=== PATIENT | male | born 1945 | race Caucasian/White ===

== ENCOUNTER → 2023-11-16 12:23 | Outpatient (REF) | payer OTHER, SELFPAY | LOC: RCS 12:23 | PROVIDERS: ATTENDING PHYSICIAN Family Medicine | DX: R01.1 Cardiac murmur, unspecified (principal) | CPT/HCPCS: 93306 ==

== ENCOUNTER 2024-03-14 10:35 | Emergency (ER) | payer OTHER, SELFPAY ==
[2024-03-14 10:36] VITALS: BP 173/93
--- NOTE | 2024-03-14 12:08 | ED.GENMED ---
History of Present Illness
General
Chief Complaint: Breathing Problem
Time Seen by Provider: 03/14/24 11:27
History of Present Illness
History of Present Illness:
79-year-old male without significant past medical history presenting to the emergency department for throat pain. Patient reports for the past few days he has been having generalized burning discomfort diffusely throughout his neck, worse with any
type of deep inspiration. He reports that no position is comfortable for him. Reports pain to the cervical region as well without inciting injury or trauma. He tried Tylenol without relief of symptoms. He denies associated fever. He reports
that he was having some pain in his chest which is since resolved. Denies difficulty breathing. He denies ever having similar symptoms to this in the past. Denies issues swallowing or tolerating his secretions. Denies additional acute medical
complaints.
Past History
Past History
ED Past Medical History: None
Social History
Tobacco: Non-smoker
Alcohol: Occasional
Family History
Family History: Negative Diabetes or CAD
Phy Exam
Physical Exam
Physical Exam:
General: Well-appearing, no clinical signs of dehydration, nontoxic and in no acute distress
HEENT: protecting airway
Neck: appears supple. Tender lymphadenopathy to the cervical region without significant swelling. No trismus. No oropharyngeal swelling, uvula midline. Normal phonation of voice. No swelling to the floor of the mouth. Handling secretions
without difficulty. No reproducible tenderness to the cervical spine with range of motion intact. No meningismus.
CV: Normal heart rate, regular rhythm, no evidence of cyanosis
Resp: No accessory muscle use, no increased work of breathing, lungs clear to auscultation bilaterally
Abd: Soft and non-distended, no tenderness to palpation, normal bowel sounds
Extremities: No deformities, no swelling, no erythema
Neuro: alert, no focal neurologic deficit
: deferred
Rectal: deferred
Psych: Normal affect
Skin: Intact
Scores
Heart Failure Risk
Heart Failure Risk Score: Not Applicable
Course
Orders/Labs/Results
Orders:
Orders
03/14/24 10:40
EKG [Electrocardiogram (*1)] Urgent
Reason for Study: Chest Pain
EKG- Treatment ONCE
03/14/24 12:01
CT Neck With Iv Contrast Urgent
Comment:
Reason For Exam: b/l frontal neck pain, burning
Rapid Strep Group A Urgent
SHAR Source: Throat/Pharynx
Specimen Description:
Date Specimen was Collected: 03/14/24
Time Specimen was Collected: 13:05
Ketorolac [Toradol] 15 mg IV NOW STA
03/14/24 12:56
Complete Blood Count/With Diff Urgent
Comprehensive Metabolic Panel Urgent
Troponin I Urgent
Abnormal Lab Results
03/14/24
12:56
WBC 11.2 H 10^3/uL
(4.8-10.8)
RBC 4.49 L 10^6/uL
(4.70-6.10)
MCH 31.6 H pg
(27.0-31.0)
MPV 10.5 H fL
(7.4-10.4)
Abs Immat Gran (auto) 0.1 H 10^3/uL
(0-0.05)
Absolute Neuts (auto) 8.9 H 10^3/uL
(1.4-6.5)
Absolute Lymphs (auto) 0.7 L 10^3/uL
(1.2-3.4)
Absolute Monos (auto) 1.5 H 10^3/uL
(0.1-0.6)
Neutrophils % 79.1 H %
(42.2-75.2)
Lymphocytes % 6.4 L %
(20.5-51.1)
Monocytes % 13.5 H %
(1.7-9.3)
Glucose 123 H mg/dl
(70-99)
03/14/24 12:56
03/14/24 12:56
Vital Signs
Initial and Last Documented VS:
Initial Vital Signs
Temp Pulse Resp BP Pulse Ox
99.1 F 112 20 173/93 98
03/14/24 10:36 03/14/24 10:36 03/14/24 10:36 03/14/24 10:36 03/14/24 10:36
Last Documented Vital Signs
Temp Pulse Resp BP Pulse Ox
99.1 F 89 26 108/67 94
03/14/24 10:36 03/14/24 15:15 03/14/24 15:15 03/14/24 15:00 03/14/24 15:15
MDM/Problems Addressed
MDM/Problems Addressed:
79-year-old male without significant past medical history presenting for generalized neck pain. Vital signs significant for hypertension.
On exam, patient resting comfortably, no compromise to his airway. Patient with vague symptom complaint, notes pain is worse with any type of deep inspiration, also reports that he did have some chest pain which has resolved. EKG was obtained on
patient's arrival, without acute ischemic abnormality. No concern for ACS at this time. No signs of Ky's or edema to the floor of the mouth. Uvula is midline, no trismus. Patient does have some tender lymphadenopathy, without additional
signs of strep pharyngitis. Will swab screening. Patient also notes some pain to the back of the neck, however not reproducible. No meningismus or concern for meningitis. No report of trauma or concern for traumatic injury. Possible
musculoskeletal component. Patient describes the pain as a burning. Possible gastric component. No tenderness to the abdomen. Given the vague nature, will plan for advanced imaging and screening laboratory analysis. Will treat with Toradol and
GI cocktail and reassess for improvement
16:20 -patient's labs are unremarkable. Patient has been hemodynamic stable in the emergency department. CT without any severe underlying infection. However, there is some abnormalities, mention of thyroid nodules, prominent lymph nodes, soft
tissue mass to the left third rib concerning for underlying metastatic process. Recommending close interval outpatient follow-up. Patient reports that he already has follow-up with ear nose and throat doctor tomorrow given his symptoms. Results
were communicated to patient. Explained importance of follow-up, again explained that he has follow-up tomorrow. Otherwise feel stable for discharge. Return precautions discussed and patient verbalized understanding
*Critical Care Note
Total Time (30-74mins, 75-104mins- exclusive of procedures): Not Applicable
ED Attending Note
-
Portions of this chart may have been created with voice recognition software.� Occasional wrong word or��sound alike� substitutions may have occurred due to the inherent limitations of voice recognition software.
Discharge Plan
Departure
Patient Disposition: Home (Routine Discharge)
Date of Disposition: 03/14/24
Time of Disposition: 16:21
Patient with high blood pressure during this ER visit?: No
Condition: Good
Discharge Problem:
Throat pain in adult, Thyroid nodule
Instructions: Thyroid nodules
Prescriptions:
No Action
No Current Medications
0
Referrals:
Babar,Kevin Shipley MD [Active] - (thyroid nodules)
UNKNOWN - PT DOES,NOT KNOW [Unknown Provider] -
Activity Restrictions/Additional Instructions:
You were seen in the emergency department for throat pain
You were found to have an abnormal CT scan which showed thyroid nodules and a soft tissue mass on your left third rib.
Please follow-up closely with your primary care physician as well as the ear nose and throat doctor.
Return to the emergency department for any worsening of your symptoms, difficulty tolerating your secretions or swallowing, or any development of chest pain, difficulty breathing, abdominal pain with persistent vomiting and inability to tolerate
food or liquid by mouth (concern for dehydration), weakness, headache or confusion, fever greater than 100.4, or any additional symptoms that are concerning to you.
Thank you for choosing [facility].
Interventions
Interventions:
*Risk Screen - Suicide Last Done: 03/14/24 10:36
*General Assessment Last Done: 03/14/24 10:36
*Neglect/Abuse Screening Last Done: 03/14/24 10:36
ED- Fall Risk Assessment Last Done: 03/14/24 16:27
*ED COVID-19 Vaccine History Last Done: 03/14/24 10:36
*Nursing Disposition Last Done: 03/14/24 16:27
ED- Cardiac Assessment Last Done: 03/14/24 13:57
ED- Pulmonary Assessment Last Done: 03/14/24 13:57
Discharge Date and Time
Discharge Date/Time: 03/14/24 16:28
Print Language: SLOVAK
[2024-03-14] MEDS: TORADOL 15 MG IV (12:54)
[2024-03-14 13:03] LABS: % Basophils 0.3 % (0-2); % Eosinophils 0.3 % (0-6); % Immature Granulocytes 0.4 % (0-0.5); % Lymphocytes 6.4 % (20.5-51.1); % Monocytes 13.5 % (1.7-9.3); % Neutrophils 79.1 % (42.2-75.2); Absolute Immature Granulocytes 0.1 10^3/uL (0-0.05); Absolute Lymphocytes 0.7 10^3/uL (1.2-3.4); Absolute Monocytes 1.5 10^3/uL (0.1-0.6); Absolute Neutrophils 8.9 10^3/uL (1.4-6.5); Hematocrit 40.7 % (39.0-52.0); Hemoglobin 14.2 g/dL (13.0-18.0); Mean Corp Hgb Conc. 34.9 g/dL (33.0-37.0); Mean Corpuscular Hgb 31.6 pg (27.0-31.0); Mean Corpuscular Volume 90.6 fL (80.0-94.0); Mean Platelet Volume 10.5 fL (7.4-10.4); Nucleated Red Blood Cells % 0 % (-); Platelet Count 219 10^3/uL (130-400); Red Blood Cell Count 4.49 10^6/uL (4.70-6.10); Red Cell Dist. Width 12.7 % (11.5-14.5); White Blood Cell Count 11.2 10^3/uL (4.8-10.8)
[2024-03-14 13:18] LABS: ALT (SGPT) 18 U/L (0-50); AST (SGOT) 27 U/L (17-59); Albumin 4.1 g/dl (3.5-5.0); Alkaline Phosphatase 70 U/L (38-126); Blood Urea Nitrogen 15 mg/dl (9-20); Calcium 9.5 mg/dl (8.4-10.2); Carbon Dioxide 26 mmol/L (22-30); Chloride 103 mmol/L (98-107); Glucose 123 mg/dl (70-99); Potassium 4.4 mmol/L (3.5-5.1); Sodium 135 mmol/L (135-145); Total Protein 6.7 g/dl (6.3-8.2); eGFR > 60.00
[2024-03-14 13:30] LABS: Troponin I < 0.012 ng/ml
[2024-03-14 14:00] VITALS: BP 115/65
[2024-03-14 14:04] VITALS: BP 115/65
[2024-03-14 15:00] VITALS: BP 108/67
== END 2024-03-14 16:28 | disposition home or self-care (01) ==
LOC: EMR 10:35
PROVIDERS: EMERGENCY PHYSICIAN Student in an Organized Health Care Education/Training Program; FAMILY PHYSICIAN Family Medicine
DX: R07.0 Pain in throat (principal); M54.2 Cervicalgia; E04.2 Nontoxic multinodular goiter; R59.1 Generalized enlarged lymph nodes; R07.9 Chest pain, unspecified; M79.89 Other specified soft tissue disorders; R22.2 Localized swelling, mass and lump, trunk; Z88.0 Allergy status to penicillin
CPT/HCPCS: 99285; 96374; 70491; 80053; 84484; 85025; 87070; 87880; 93005; Q9967

== ENCOUNTER 2024-03-23 16:57 | Inpatient (IN) | payer OTHER, SELFPAY ==
[2024-03-23 11:40] VITALS: BP 121/83
[2024-03-23 11:58] LABS: % Basophils 0.4 % (0-2); % Eosinophils 1.2 % (0-6); % Immature Granulocytes 0.7 % (0-0.5); % Lymphocytes 11.8 % (20.5-51.1); % Neutrophils 73.9 % (42.2-75.2); Absolute Basophils 0.1 10^3/uL (0-0.2); Absolute Eosinophils 0.1 10^3/uL (0-0.7); Absolute Immature Granulocytes 0.1 10^3/uL (0-0.05); Absolute Lymphocytes 1.4 10^3/uL (1.2-3.4); Absolute Monocytes 1.4 10^3/uL (0.1-0.6); Absolute Neutrophils 8.8 10^3/uL (1.4-6.5); Hematocrit 38.2 % (39.0-52.0); Hemoglobin 13.3 g/dL (13.0-18.0); Mean Corp Hgb Conc. 34.8 g/dL (33.0-37.0); Mean Corpuscular Hgb 31.4 pg (27.0-31.0); Mean Corpuscular Volume 90.1 fL (80.0-94.0); Nucleated Red Blood Cells % 0 % (-); Platelet Count 310 10^3/uL (130-400); Red Blood Cell Count 4.24 10^6/uL (4.70-6.10); Red Cell Dist. Width 12.7 % (11.5-14.5); White Blood Cell Count 11.9 10^3/uL (4.8-10.8)
[2024-03-23 12:08] LABS: INR 1.14; PT 14.7 Sec (11.4-14.6)
[2024-03-23 12:20] LABS: ALT (SGPT) 34 U/L (0-50); AST (SGOT) 39 U/L (17-59); Albumin 3.8 g/dl (3.5-5.0); Alkaline Phosphatase 68 U/L (38-126); Blood Urea Nitrogen 16 mg/dl (9-20); Calcium 9.3 mg/dl (8.4-10.2); Carbon Dioxide 23 mmol/L (22-30); Chloride 104 mmol/L (98-107); Glucose 115 mg/dl (70-99); Potassium 4.8 mmol/L (3.5-5.1); Sodium 134 mmol/L (135-145); Total Bilirubin 0.9 mg/dl (0.2-1.3); Total Protein 6.3 g/dl (6.3-8.2); eGFR > 60.00
[2024-03-23 12:22] LABS: Troponin I < 0.012 ng/ml
[2024-03-23 13:00] VITALS: BP 107/81
--- NOTE | 2024-03-23 13:14 | ED.GENMED ---
History of Present Illness
General
Chief Complaint: Cardiac Symptoms
Time Seen by Provider: 03/23/24 12:35
History of Present Illness
History of Present Illness:
Patient is a 79-year-old man who is otherwise healthy presenting to the emergency department with neck pain arm pain and chest pain. Patient states that he came in here last week for the same and had CAT scans and x-rays. He states that he has
been having neck pain for quite some time. He can localize it to his base of the neck right above the clavicle. He also has shooting pain down his left arm. No back of the neck pain. He is also occasionally been having chest pain. It is
sometimes pleuritic. He does have some shortness of breath secondary to it. No fevers or chills. No leg swelling. No recent travel. No hemoptysis. 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
many years ago. He does state that he follows with a PCP and does see them regularly. Patient states that he is back here as the pain has not gotten any better. Patient states that he followed up with ENT though did not have any relief. Per
chart review it appears that patient a CT of his neck completed which does show thyroid nodules and a prominent lymph node directly at the point of patient's pain. X-ray does show concerning metastatic process. Unfortunately patient did not
follow-up for ultrasound but did see ENT.
Past History
Past History
ED Past Medical History: None
Social History
Tobacco: Non-smoker
Alcohol: Occasional
Family History
Family History: Negative Diabetes or CAD
Phy Exam
Physical Exam
Physical Exam:
GENERAL: in no acute distress
HEENT: normocephalic, extraocular movements intact, moist oral mucosa, tender lymph node at the left base of the anterior cervical chain
NECK: normal inspection, no C-spine tenderness
RESPIRATORY: no respiratory distress, clear to auscultation bilaterally
CARDIOVASCULAR: regular rate and rhythm
ABDOMEN/: soft, non-distended, non-tender to palpation, no rebound or guarding
EXTREMITIES: non-tender, no edema/swelling
NEUROLOGIC: awake and alert, moves all extremities
SKIN: warm
Course
Orders/Labs/Results
Orders:
Orders
03/23/24 11:33
ECG [Electrocardiogram (*1)] Urgent
Reason for Study: Other
Other Reason for Exam: Jaw Pain
03/23/24 11:34
EKG- Treatment ONCE
03/23/24 11:41
CR Chest - 2 Views Urgent
Comment:
Reason For Exam: chest pain
03/23/24 11:45
Complete Blood Count/With Diff Urgent
Comprehensive Metabolic Panel Urgent
Prothrombin Time Urgent
Troponin I Urgent
03/23/24 13:08
CT Chest Pe Study Urgent
Comment:
Reason For Exam: pleuritic cp
03/23/24 13:29
COVID-19 Antigen Urgent
Source: Nasal Swab
Abnormal Lab Results
03/23/24
11:45
WBC 11.9 H 10^3/uL
(4.8-10.8)
RBC 4.24 L 10^6/uL
(4.70-6.10)
Hct 38.2 L %
(39.0-52.0)
MCH 31.4 H pg
(27.0-31.0)
Abs Immat Gran (auto) 0.1 H 10^3/uL
(0-0.05)
Absolute Neuts (auto) 8.8 H 10^3/uL
(1.4-6.5)
Absolute Monos (auto) 1.4 H 10^3/uL
(0.1-0.6)
Immature Gran % 0.7 H %
(0-0.5)
Lymphocytes % 11.8 L %
(20.5-51.1)
Monocytes % 12.0 H %
(1.7-9.3)
PT 14.7 H Sec
(11.4-14.6)
Sodium 134 L mmol/L
(135-145)
Glucose 115 H mg/dl
(70-99)
03/23/24 11:45
03/23/24 11:45
Vital Signs
Initial and Last Documented VS:
Initial Vital Signs
Temp Pulse Resp BP Pulse Ox
97.9 F 95 18 121/83 95
03/23/24 11:40 03/23/24 11:40 03/23/24 11:40 03/23/24 11:40 03/23/24 11:40
Last Documented Vital Signs
Temp Pulse Resp BP Pulse Ox
97.9 F 87 30 113/74 94
03/23/24 11:40 03/23/24 15:00 03/23/24 15:00 03/23/24 15:00 03/23/24 15:00
MDM/Problems Addressed
Differential Diagnosis Includes:
Patient is a 79-year-old man with no past medical history presenting to the emergency department with neck pain arm pain and chest pain. Vitals are unremarkable. Exam does show a tender lymph node but otherwise exam is reassuring. The neck pain
could certainly be due to the lymph node. The arm arm pain does sound neuropathic in nature. However could be atypical ACS though less likely. Given that he is having pleuritic chest pain and this metastatic disease could be PE. This is
reassuring that he is not hypoxic or tachycardic. Will check blood work including troponin and EKG and CT PE. Patient is aware of the importance of following up regarding the thyroid nodules and lymph node.
*Critical Care Note
Total Time (30-74mins, 75-104mins- exclusive of procedures): Not Applicable
Update Note
Update Note:
Blood work is unremarkable. CT scan does show moderate-sized pericardial effusion as well as a left adrenal nodule. On ambulation patient did become more short of breath vital signs still remains normal. It could be secondary to the pericardial
effusion. It is reassuring that he is not hypotensive or presenting with tamponade physiology.. I did discuss with oncology who is in agreement for admission given that the lesions do not give a unifying diagnosis. Discussed with hospitalist who
accepted patient for admission
ED Attending Note
-
Portions of this chart may have been created with voice recognition software.� Occasional wrong word or��sound alike� substitutions may have occurred due to the inherent limitations of voice recognition software.
Discharge Plan
Departure
Patient Disposition: Admit
Date of Disposition: 03/23/24
Time of Disposition: 15:28
Admit to doctor: go
Presentation/result/management discussed w/ accepting MD/DO: Hospitalist
Discharge Problem:
Acute pericardial effusion, Thyroid nodule, Lesion of adrenal gland
Prescriptions:
No Action
No Current Medications
0
Referrals:
León Mendosa MD [Family Provider] -
Interventions
Interventions:
*Risk Screen - Suicide Last Done: 03/23/24 13:25
*General Assessment Last Done: 03/23/24 13:25
*Neglect/Abuse Screening Last Done: 03/23/24 13:25
*ED COVID-19 Vaccine History Last Done: 03/23/24 14:00
ED- Pulmonary Assessment Last Done: 03/23/24 13:26
ED- Cardiac Assessment Last Done: 03/23/24 13:26
Discharge Date and Time
Print Language: FRISIAN
[2024-03-23 13:18] VITALS: BMI 31.6
[2024-03-23 14:00] VITALS: BP 102/70
[2024-03-23 14:00] LABS: COVID-19 Antigen Negative (Negative)
[2024-03-23 15:00] VITALS: BP 113/74
--- NOTE | 2024-03-23 16:45 | HPS.HSE ---
Family Physician
-
Family Physician: León Mendosa
Chief Complaint
-
neck pain
History of Present Illness
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 Pain originally started like back stiffness all across his back and neck 1 week
ago which later resolved. He then developed neck pain and lower chest pain and left arm pain. He came to the emergency room and had a CT scan of the neck which showed 2.5 cm left neck lymph node and left third rib lesion. He was discharged home
and recommend to follow-up with ENT who did not note any abnormality on examination.
He has been having shortness of breath that is worse with breathing and worse with exertion or lying down. Breathing also makes the neck pain worse. Chest pain is somewhat better at this time. He denies any dizziness or palpitations. He denies
any cough or fevers or chills. He denies any nausea vomiting or diarrhea. He denies any recent upper respiratory illness. Denies any lower extremity edema or increased weight. He denies difficulty swallowing although eating softer foods.
He denies any blurry vision, headache, numbness or tingling, focal weakness or vertigo.
He was told that he had tumors in his left carotid artery after having pain behind his ear 20 years ago. He was told that surgery was not recommended because he could become paralyzed.
His brother at age of 32 from colon cancer. His mother had breast cancer. No other family history of malignancy.
He denies smoking or alcohol use.
Medical History
Past Medical History
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
Past Surgical History: Reports Tonsilectomy
Social History
Tobacco: Non-smoker
Alcohol: None
Drug: None
Family History
Family History: Other (His brother at age of 32 from colon cancer. His mother had breast cancer.)
Allergies / Home Medications
Allergies reflects when Allergies were last updated in [employer].
Home Medications with original date entered in [employer]
Allergy/Medication List:
Allergies
Allergy/AdvReac Type Severity Reaction Status Date / Time
Penicillins Allergy Hives Verified 03/14/24 10:36
Home Medications
acetaminophen 325 mg tablet (Tylenol) 650 mg PO BIDPRN PRN mild pain 03/23/24
ascorbic acid (vitamin C) 500 mg tablet (Vitamin C) 500 mg PO DAILY Supplement 03/23/24
coQ10 (ubiquinol) 100 mg capsule 100 mg PO DAILY Supplement 03/23/24
cyanocobalamin (vitamin B-12) 2,500 mcg tablet 2,500 mcg PO DAILY Supplement 03/23/24
garlic 300 mg capsule 300 mg PO DAILY Supplement 03/23/24
glucosam-sod chondro-vit C-angela tablet 2 tab PO DAILY 03/23/24
magnesium oxide 250 mg PO DAILY Supplement 03/23/24
therapeutic multivitamin 1 tab PO DAILY Supplement 03/23/24
zinc 15 mg tablet 30 mg PO DAILY Supplement 03/23/24
Review of Systems
-
History Source: Patient
A 12 point ROS was completed and negative except as noted: Yes
Constitutional: Reports No Symptoms
EENT: Reports No Symptoms
Respiratory: Reports See HPI
Cardiac: Reports See HPI
Abdomen/GI: Reports See HPI
: Reports No Symptoms
Musculoskeletal: Reports No Symptoms
Skin: Reports No Symptoms
Neurological: Reports See HPI
Endocrine: Reports No Symptoms
Hematologic/Lymphatic: Reports No Symptoms
Psych: Reports No Symptoms
Physical Exam
Vital Signs
Vital Signs
Temp Pulse Resp BP Pulse Ox
97.9 F 87 30 113/74 94
03/23/24 11:40 03/23/24 15:00 03/23/24 15:00 03/23/24 15:00 03/23/24 15:00
Physical Exam
General: Well Developed, Well Nourished and No Apparent Distress
HEENT: NormoCephalic, Moist mucous membranes, Atraumatic and Other (anterior left neck mass )
Respiratory: Decreased Breath Sounds (bilterally )
Cardiac: S1/S2 and Regular Rhythm; No Murmur or Rub
GI: Soft, Non Tender, Non Distended and Normal Bowel Sounds; No Organomegaly
Rectal: Deferred by Provider
Musculoskeletal: No Clubbing, No Cyanosis and No Edema
Skin: No Rash
Neuro: Nonfocal/grossly intact
Laboratory Results
-
03/23/24 11:45
03/23/24 11:45
Laboratory Results
PT 14.7 Sec (11.4-14.6) H 03/23/24 11:45
INR 1.14 03/23/24 11:45
Total Bilirubin 0.9 mg/dl (0.2-1.3) 03/23/24 11:45
AST 39 U/L (17-59) 03/23/24 11:45
ALT 34 U/L (0-50) 03/23/24 11:45
Alkaline Phosphatase 68 U/L (38-126) 03/23/24 11:45
Troponin I < 0.012 ng/ml 03/23/24 11:45
Data Reviewed
-
Lab Data: Labs Reviewed by me
Old Records: Reviewed
Impression/Plan
-
IMPRESSION:
PLAN:
# Neck pain secondary to left neck lymph node, clinical picture suspicious for lymphoma/leukemia
-CBC shows slight elevation of absolute immature granulocytes, absolute neutrophils, absolute monocytes
-Oncology consulted
# Lateral left third rib lesion suspicious for malignancy
# Left upper extremity pain
-Check cervical MRI with contrast to rule out cervical radiculopathy from malignancy
-Tylenol, ibuprofen for pain
# Pleuritic chest pain/shortness of breath secondary to moderate-sized pericardial effusion
-possible pericarditis from underlying inflammatory process
-EKG shows normal sinus rhythm, no ischemic changes
-Troponin negative
-Check echo
-Cardiology consulted
# 1.5 cm left adrenal nodule
#Thyroid nodules
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
-Check CTA neck
BPH
Full code
DVT prophylaxis heparin
Regular diet
[2024-03-23 17:00] VITALS: BP 109/58
--- NOTE | 2024-03-23 18:25 | PTCARENOTE ---
pt admitted from ED Awake and alert. Oriented, though noted to be inappropriate with female staff. LCTA B/L on RA. MS. regular heart sounds. round obese abd. +BD x4. cont b&B weak PP no edema
[2024-03-23] MEDS: HEPARIN 5000 UNITS SC (20:37)
[2024-03-23 23:13] VITALS: BP 107/64
[2024-03-24 06:49] LABS: % Basophils 0.5 % (0-2); % Eosinophils 0.3 % (0-6); % Immature Granulocytes 0.6 % (0-0.5); % Lymphocytes 9.6 % (20.5-51.1); % Monocytes 10.5 % (1.7-9.3); % Neutrophils 78.5 % (42.2-75.2); Absolute Basophils 0.1 10^3/uL (0-0.2); Absolute Immature Granulocytes 0.1 10^3/uL (0-0.05); Absolute Monocytes 1.1 10^3/uL (0.1-0.6); Hematocrit 36.3 % (39.0-52.0); Hemoglobin 12.6 g/dL (13.0-18.0); Mean Corp Hgb Conc. 34.7 g/dL (33.0-37.0); Mean Corpuscular Hgb 31.3 pg (27.0-31.0); Mean Corpuscular Volume 90.3 fL (80.0-94.0); Mean Platelet Volume 10.2 fL (7.4-10.4); Nucleated Red Blood Cells % 0 % (-); Platelet Count 295 10^3/uL (130-400); Red Blood Cell Count 4.02 10^6/uL (4.70-6.10); Red Cell Dist. Width 12.7 % (11.5-14.5); White Blood Cell Count 10.2 10^3/uL (4.8-10.8)
[2024-03-24 07:20] LABS: ALT (SGPT) 30 U/L (0-50); AST (SGOT) 28 U/L (17-59); Albumin 3.6 g/dl (3.5-5.0); Alkaline Phosphatase 69 U/L (38-126); Blood Urea Nitrogen 17 mg/dl (9-20); Calcium 9.3 mg/dl (8.4-10.2); Carbon Dioxide 27 mmol/L (22-30); Chloride 101 mmol/L (98-107); Estimated Creatinine Clearance 94 ml/min; Glucose 117 mg/dl (70-99); Potassium 4.8 mmol/L (3.5-5.1); Sodium 134 mmol/L (135-145); Total Bilirubin 1.1 mg/dl (0.2-1.3); eGFR > 60.00
[2024-03-24 07:58] VITALS: BP 121/81
--- NOTE | 2024-03-24 08:18 | CON.CAR ---
Addendum entered and electronically signed by Gigi Phillips MD 03/24/24 11:02:
I saw and examined the patient.
The PERFORMANCE MANAGER's note was reviewed and I agree with the note.
Comment: 79 y/o male with BPH, neck mass (previous details unknown), and moderate mitral regurgitation who is here for evaluation since he woke up about 2 weeks ago with back stiffness with associated jaw, throat, left upper chest, and left arm
pain, which is worse when he lays on his left side and can also be worse with inspiration. He was found to have a moderate pericardial and dilated IVC. Given his symptoms of TAYLOR and moderate sized pericardial effusion, we discussed with
interventionalist and will plan for diagnostic and therapeutic pericardiocentesis.
- NPO after midnight for pericardiocentesis
Original Note:
Consultation
Consultation Request
Date/Time Consultation Requested: 03/23/24 6000
Date/Time Consultation Performed: 03/24/24 0815
Requesting Provider: Dr. Espinosa
Performing Provider: Rossi YU for Dr. Phillips
Reason for Consultation: pericardial effusion, concern for pericarditis
Medical History
-
Chief Complaint: neck pain, arm, back pain, TAYLOR
History of Present Illness:
79 y/o male with BPH, neck mass (previous details unknown), and moderate mitral regurgitation who is here for evaluation since he woke up about 2 weeks ago with back stiffness with associated jaw, throat, left upper chest, and left arm pain, which
is worse when he lays on his left side and can also be worse with inspiration. He came to the ER for this and was seen to have thyroid nodules, prominent lymph nodes, soft tissue mass to the left third rib concerning for underlying metastatic
process with recommendation to follow-up on this as OP. However, discomfort has continued. He does report that yesterday, he had TAYLOR when walking to his mailbox. He is admitted for further evaluation. CT ruled out PE, but he was seen to have a
moderate sized pericardial effusion. He is in no distress. BP stable. Denies dizziness.
Past Medical History
Past Medical History: Valvular Disease (moderate MR) and Other (BPH, hx neck mass (details unclear))
Social History
Tobacco: Non-Smoker
Alcohol: None
Family History
Family History: Reviewed & Not Pertinent
Allergies / Home Medications
Allergy/AdvReac Type Severity Reaction Status Date / Time
Penicillins Allergy Hives Verified 03/14/24 10:36
�Medication �Instructions �Recorded �Confirmed �Type
acetaminophen 325 mg tablet 650 mg PO BIDPRN PRN mild pain 03/23/24 03/23/24 History
(Tylenol)
ascorbic acid (vitamin C) 500 mg 500 mg PO DAILY Supplement 03/23/24 03/23/24 History
tablet (Vitamin C)
coQ10 (ubiquinol) 100 mg capsule 100 mg PO DAILY Supplement 03/23/24 03/23/24 History
cyanocobalamin (vitamin B-12) 2,500 mcg PO DAILY Supplement 03/23/24 03/23/24 History
2,500 mcg tablet
garlic 300 mg capsule 300 mg PO DAILY Supplement 03/23/24 03/23/24 History
glucosam-sod chondro-vit C-angela 2 tab PO DAILY 03/23/24 03/23/24 History
tablet
magnesium oxide 250 mg PO DAILY Supplement 03/23/24 03/23/24 History
therapeutic multivitamin 1 tab PO DAILY Supplement 03/23/24 03/23/24 History
zinc 15 mg tablet 30 mg PO DAILY Supplement 03/23/24 03/23/24 History
Review of Systems
-
History Source: Patient
All other systems: Negative unless noted
Respiratory: Trouble Breathing
Cardiac: Chest Pain
Musculoskeletal: Other (arm, neck, jaw pain)
Physical Exam
Vital Signs
Temp Pulse Resp BP Pulse Ox
97.9 F 97 17 121/81 94
03/24/24 07:58 03/24/24 07:58 03/24/24 07:58 03/24/24 07:58 03/24/24 07:58
Lab Results
03/24/24 06:30
03/24/24 06:30
Troponin I < 0.012 ng/ml 03/23/24 11:45
Physical Exam
General: Well Developed, Well Nourished and No Apparent Distress
HEENT: Normocephalic and Anicteric
Respiratory: Clear and Non Labored Respirations
Cardiac: Regular Rhythm and Murmur (II/ systolic)
Skin: Warm and Dry
Neuro: AO x 3
Psych: Calm
Impression / Plan
-
Throat, chest, jaw, arm pain:
-likely related to underlying process concerning for malignancy as below
-trop is normal, EKG unremarkable to my review
Thyroid, rib lesion, enlarged lymph node:
-heme/onc is consulted
Pericardial effusion:
-moderate by CT scan
-this diagnosis is threat to life
-patient in no distress, but does report he has had some SOB
-check echo
-place patient on telemetry
Moderate MR:
-monitor over time by echo
Data Reviewed
-
EKG: Tracing Personally Visualized and interpreted (NSR 94 BPM)
Radiology: Report Reviewed by me (No pneumothorax or vascular congestion. Cannot exclude tiny bilateral pleural effusions.)
CT Scan: Report Reviewed by me (Moderate size pericardial effusion. No evidence of central pulmonary embolism. Small bilateral pleural effusions with accompanying bilateral lower lobe subsegmental atelectasis, left greater than right. Approximate
1.5 cm likely low-attenuation left adrenal nodule)
Medical Tests (Nuc Med, Echo etc): Report Reviewed by me (Echo 11/16/23: LVEF is 60 to 65% by visual estimation. Mild concentric LVH. Dilated RV with normal systolic function. Mild mitral stenosis. Peak/mean gradients across the mitral valve are 10/4
mmHg. Moderate eccentric posteriorly directed mitral regurgitation. Estimated pulmonary artery pressure of 2)
Labs: Labs Reviewed by me
[2024-03-24] MEDS: THERAGRAN 1 TABLET PO (08:41)
[2024-03-24] MEDS: HEPARIN 5000 UNITS SC (08:42)
[2024-03-24] MEDS: MAGNESIUM OXIDE 250 MG PO (08:42)
[2024-03-24] MEDS: VITAMIN C 500 MG PO (08:42)
--- NOTE | 2024-03-24 10:20 | CON.ONC ---
Impression
Impression
Pleural and pericardial effusions
CT findings concerning for malignancy
Remote carotid lesions
Plan
Plan
Would pursue thoracentesis for cytology
Would pursue IR biopsy of the cervical lymph node
Await cervical MRI
Outpatient PET CT scan pending pathologic results
Cardiology to weigh in on pericardial effusion relative to shortness of breath
Will follow
Patient History
History of Present Illness
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 Pain originally started like back stiffness all across his back and neck
1 week ago which later resolved. He then developed neck pain and lower chest pain and left arm pain. He came to the emergency room and had a CT scan of the neck which showed 2.5 cm left neck lymph node and left third rib lesion. He return to the
emergency room with increased shortness of breath exacerbated by exertion or lying down. He denies any dizziness or palpitations. He denies any cough or fevers or chills. He denies any nausea vomiting or diarrhea. He denies any recent upper
respiratory illness. Denies any lower extremity edema or increased weight. He denies difficulty swallowing although eating softer foods. He denies any blurry vision, headache, numbness or tingling, focal weakness or vertigo.
Past-Medical/Surgical History
Past Medical History
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
Past Surgical History: Reports Tonsilectomy
Social History
Tobacco: Non-smoker
Alcohol: None
Drug: None
Family History
Family History: Other (His brother at age of 32 from colon cancer. His mother had breast cancer.)
Patient Medication
�Medication �Instructions �Recorded �Confirmed �Last Taken �Type
acetaminophen 325 mg tablet 650 mg PO BIDPRN PRN mild pain 03/23/24 03/23/24 03/23/24 History
(Tylenol)
ascorbic acid (vitamin C) 500 mg 500 mg PO DAILY Supplement 03/23/24 03/23/24 03/23/24 History
tablet (Vitamin C)
coQ10 (ubiquinol) 100 mg capsule 100 mg PO DAILY Supplement 03/23/24 03/23/24 03/23/24 History
cyanocobalamin (vitamin B-12) 2,500 mcg PO DAILY Supplement 03/23/24 03/23/24 03/23/24 History
2,500 mcg tablet
garlic 300 mg capsule 300 mg PO DAILY Supplement 03/23/24 03/23/24 03/23/24 History
glucosam-sod chondro-vit C-angela 2 tab PO DAILY Supplement 03/23/24 03/23/24 03/23/24 History
tablet
magnesium oxide 250 mg PO DAILY Supplement 03/23/24 03/23/24 03/23/24 History
therapeutic multivitamin 1 tab PO DAILY Supplement 03/23/24 03/23/24 03/23/24 History
zinc 15 mg tablet 30 mg PO DAILY Supplement 03/23/24 03/23/24 03/23/24 History
Active Medications
Generic Name Dose Route Start Last Admin
Trade Name Freq PRN Reason Stop Dose Admin
Acetaminophen 650 mg 03/23/24 18:00
Acetaminophen 325 Mg Tablet PO 04/20/24 17:59
Q4HPRN PRN
mild pain/MCCARTY/temp> 100.4F
Ascorbic Acid 500 mg 03/24/24 08:00 03/24/24 08:42
Ascorbic Acid 500 Mg Tablet PO 04/21/24 07:59 500 mg
DAILY JW Administration
Cyanocobalamin 2,500 mcg 03/24/24 08:00
Cyanocobalamin 1,000 Mcg Tablet PO 04/21/24 07:59
DAILY JW
Heparin Sodium 5,000 units 03/23/24 20:00 03/24/24 08:42
Heparin 5,000 Units/Ml 1 Ml Vial SC 04/20/24 19:59 5,000 units
Q12 JW Administration
Ibuprofen 400 mg 03/23/24 18:00
Ibuprofen 400 Mg Tablet PO 04/20/24 17:59
Q6HPRN PRN
MODERATE PAIN
Magnesium Oxide 250 mg 03/24/24 08:00 03/24/24 08:42
Magnesium Oxide 500 Mg Tablet PO 04/21/24 07:59 250 mg
DAILY JW Administration
Multivitamins Therapeutic 1 tablet 03/24/24 08:00 03/24/24 08:41
Multivitamin Tablet PO 04/21/24 07:59 1 tablet
DAILY JW Administration
Sodium Chloride 0 flush 03/23/24 19:00
Sodium Chloride 0.9% (Flush) Syringe IV 04/20/24 18:59
PER PROTOCOL JW
Review of Systems
-
12 point review of systems negative other than those reviewed in the HPI
Physical Exam
-
Physical Exam
General: Well Developed, Well Nourished and No Apparent Distress
HEENT: NormoCephalic, Moist mucous membranes, Atraumatic and Other (anterior left neck mass )
Respiratory: Decreased Breath Sounds
Cardiac: S1/S2 and Regular Rhythm; No Murmur or Rub
GI: Soft, Non Tender, Non Distended and Normal Bowel Sounds; No Organomegaly
Musculoskeletal: No Clubbing, No Cyanosis and No Edema
Skin: No Rash
Neuro: Nonfocal/grossly intact
Labs
Lab Results
WBC 10.2 10^3/uL (4.8-10.8) 03/24/24 06:30
RBC 4.02 10^6/uL (4.70-6.10) L 03/24/24 06:30
Hgb 12.6 g/dL (13.0-18.0) L 03/24/24 06:30
Hct 36.3 % (39.0-52.0) L 03/24/24 06:30
MCV 90.3 fL (80.0-94.0) 03/24/24 06:30
MCH 31.3 pg (27.0-31.0) H 03/24/24 06:30
MCHC 34.7 g/dL (33.0-37.0) 03/24/24 06:30
RDW 12.7 % (11.5-14.5) 03/24/24 06:30
Plt Count 295 10^3/uL (130-400) 03/24/24 06:30
MPV 10.2 fL (7.4-10.4) 03/24/24 06:30
Abs Immat Gran (auto) 0.1 10^3/uL (0-0.05) H 03/24/24 06:30
Absolute Neuts (auto) 8.0 10^3/uL (1.4-6.5) H 03/24/24 06:30
Absolute Lymphs (auto) 1.0 10^3/uL (1.2-3.4) L 03/24/24 06:30
Absolute Monos (auto) 1.1 10^3/uL (0.1-0.6) H 03/24/24 06:30
Absolute Eos (auto) 0.0 10^3/uL (0-0.7) 03/24/24 06:30
Absolute Basos (auto) 0.1 10^3/uL (0-0.2) 03/24/24 06:30
Immature Gran % 0.6 % (0-0.5) H 03/24/24 06:30
Neutrophils % 78.5 % (42.2-75.2) H 03/24/24 06:30
Lymphocytes % 9.6 % (20.5-51.1) L 03/24/24 06:30
Monocytes % 10.5 % (1.7-9.3) H 03/24/24 06:30
Eosinophils % 0.3 % (0-6) 03/24/24 06:30
Basophils % 0.5 % (0-2) 03/24/24 06:30
Creatinine 0.8 mg/dL (0.7-1.3) 03/24/24 06:30
Vital Signs
Vital Signs
Temp Pulse Resp BP Pulse Ox
97.9 F 97 17 121/81 94
03/24/24 07:58 03/24/24 07:58 03/24/24 07:58 03/24/24 07:58 03/24/24 07:58
[2024-03-24] MEDS: VITAMIN B-12 2500 MCG PO (11:19)
--- NOTE | 2024-03-24 12:05 | W.PN.HOSP.TC ---
Today's Communication/Plan
-
Monitor vital signs
see plan
Plan for pericardiocentesis tomorrow
Lymph node biopsy per IR and oncology
cervical MRI, echo
Assessment / Plan
Assessment / Plan
General: Well Developed, Well Nourished and No Apparent Distress
HEENT: NormoCephalic, Moist mucous membranes, Atraumatic and Other (anterior left neck mass )
Respiratory: Decreased Breath Sounds (bilterally )
Cardiac: S1/S2 and Regular Rhythm; No Murmur or Rub
GI: Soft, Non Tender, Non Distended and Normal Bowel Sounds
Musculoskeletal: No Clubbing, No Cyanosis and No Edema
Neuro: Nonfocal/grossly intact
Neck pain secondary to left neck lymph node, clinical picture suspicious for malignancy
Oncology following
Cervical MRI
IR consulted by oncology for possible biopsy
# Pleuritic chest pain/shortness of breath secondary to moderate-sized pericardial effusion
-possible pericarditis from underlying inflammatory process
-EKG shows normal sinus rhythm, no ischemic changes
-Troponin negative
-Check echo
-Cardiology following, plan for pericardiocentesis 03/25
# Lateral left third rib lesion suspicious for malignancy
Mild hyponatremia
monitor
# Left upper extremity pain
-Check cervical MRI with contrast to rule out cervical radiculopathy from malignancy
-Tylenol, ibuprofen for pain
# 1.5 cm left adrenal nodule
#Thyroid nodules
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 neck 03/14 was without any carotid abnormality. Discussed with radiology and another CT is not necessary. CT neck at that time showed thyroid nodules, 2.5 cm base of left neck lymph node. 3.5 cm soft tissue density involving the lateral
aspect of the third rib
BPH
Full code
DVT prophylaxis heparin
Anticipated Discharge: 24 - 48 hours
Subjective/Interval History
-
Date of Service: March 24, 2024
denies nausea
Objective Data
-
Labs:
Laboratory Results
03/24/24
06:30
WBC 10.2
Hgb 12.6 L
Hct 36.3 L
Plt Count 295
Sodium 134 L
Potassium 4.8
Chloride 101
Carbon Dioxide 27
BUN 17
Creatinine 0.8
Glucose 117 H
Calcium 9.3
Total Bilirubin 1.1
AST 28
ALT 30
Alkaline Phosphatase 69
Vital Signs:
Vital Signs
Temp Pulse Resp BP Pulse Ox
97.9 F 97 17 121/81 94
03/24/24 07:58 03/24/24 07:58 03/24/24 07:58 03/24/24 07:58 03/24/24 07:58
I&O
03/23/24 03/24/24 03/25/24
06:59 06:59 06:59
Intake Total 480 / 480
Balance 480 / 480
[2024-03-24 14:28] LABS: TSH Reflex To Free T4 2.62 uIU/ml (0.47-4.68)
--- NOTE | 2024-03-24 15:44 | CM ---
Reviewed chart, met with patient to obtain information for assessment. Patient stated that he lives with his in a two story home with one step to enter. He described himself as independent with his ADLs, personal care, dressing and bathing. He
can cook, clean, do laundry and offset printing pressmen. He drives and can get to all his appointments and do his own shopping.
Patient has no DME.
He has not had VN services. He has not been to a SNF.
Patient has a prescription plan and uses, [facility] pharmacy in [place] for all of his medications.
Patient's PCP, is Dr. León Mendosa.
Patient stated that he feels that he is at baseline but understands that medical workup is in progress so he is unsure of what his needs may be.
Plan: Case management will continue to follow and assist with discharge planning. Tentative home when cleared.
[2024-03-24 16:09] VITALS: BP 128/81
[2024-03-24 18:31] LABS: Hepatitis C Antibody Negative (Negative)
[2024-03-24] MEDS: HEPARIN SC (20:27)
[2024-03-24 23:16] VITALS: BP 131/83
[2024-03-25] VITALS (12 sets, daily range): BP systolic 74–124; BP diastolic 58–75
[2024-03-25] MEDS: MAGNESIUM OXIDE PO (07:30)
[2024-03-25] MEDS: THERAGRAN PO (07:30)
[2024-03-25] MEDS: VITAMIN C PO (07:30)
[2024-03-25] MEDS: HEPARIN SC ×2 (07:30→20:31)
[2024-03-25] MEDS: VITAMIN B-12 PO (07:30)
[2024-03-25 07:52] LABS: % Basophils 0.3 % (0-2); % Eosinophils 0.5 % (0-6); % Immature Granulocytes 1.9 % (0-0.5); % Lymphocytes 8.7 % (20.5-51.1); % Monocytes 10.2 % (1.7-9.3); % Neutrophils 78.4 % (42.2-75.2); Absolute Eosinophils 0.1 10^3/uL (0-0.7); Absolute Immature Granulocytes 0.2 10^3/uL (0-0.05); Absolute Lymphocytes 0.9 10^3/uL (1.2-3.4); Absolute Neutrophils 7.8 10^3/uL (1.4-6.5); Hematocrit 36.9 % (39.0-52.0); Hemoglobin 12.8 g/dL (13.0-18.0); Mean Corp Hgb Conc. 34.7 g/dL (33.0-37.0); Mean Corpuscular Hgb 31.3 pg (27.0-31.0); Mean Corpuscular Volume 90.2 fL (80.0-94.0); Mean Platelet Volume 10.3 fL (7.4-10.4); Nucleated Red Blood Cells % 0 % (-); Platelet Count 312 10^3/uL (130-400); Red Blood Cell Count 4.09 10^6/uL (4.70-6.10); Red Cell Dist. Width 12.6 % (11.5-14.5)
[2024-03-25 08:06] LABS: ALT (SGPT) 31 U/L (0-50); AST (SGOT) 31 U/L (17-59); Albumin 3.7 g/dl (3.5-5.0); Alkaline Phosphatase 68 U/L (38-126); Blood Urea Nitrogen 21 mg/dl (9-20); Calcium 9.2 mg/dl (8.4-10.2); Carbon Dioxide 25 mmol/L (22-30); Chloride 98 mmol/L (98-107); Estimated Creatinine Clearance 94 ml/min; Glucose 124 mg/dl (70-99); Potassium 4.9 mmol/L (3.5-5.1); Sodium 133 mmol/L (135-145); Total Bilirubin 0.9 mg/dl (0.2-1.3); Total Protein 6.2 g/dl (6.3-8.2); eGFR > 60.00
[2024-03-25] MEDS: LOPRESSOR 2.5 MG IV (08:29)
--- NOTE | 2024-03-25 08:34 | ITS.CL.CATH ---
Machine Brush Maker - Catheterization
Cardiac Catheterization
Procedure Report:
CARDIAC CATHETERIZATION REPORT
Date of Procedure: 03/25/24
Referring: Dr. Kenan Cruz MD
Indication: severe MR
PROCEDURE:
1. Left heart catheterization.
2. Coronary angiography.
ACCESS:
6 Thai right radial artery
CATHETERS:
2. 6 Thai JL3.5.
3. 6 Thai JR4.
HEMODYNAMIC DATA
AO 108/71 (82) mmHg
LV 114/15 (EDP 31) mmHg
CORONARY ANGIOGRAPHY
Dominance: right
Left Main: normal
LAD: gives rise to two moderate caliber diagonal branches and wraps around the apex. There is a widely patent stent in the mid-LAD. There is a 80% stenosis in the distal-apical LAD that is unchanged from prior cath. There is JIMBO 3 flow to the apex.
LCx: gives rise to a small OM1 and large OM2. There is a widely patent stent extending from the LCx into OM2 and otherwise no obstructive coronary artery disease.
RCA: gives rise to a moderate caliber RPDA and several RPL branches. There is a widely patent stent in the mid-RCA and otherwise no obstructive coronary artery disease.
Closure Device: TR band @ 8 josé miguel
Radiation dose (mGy): 392.77
DAP (cm2.Gy): 33.4167
Fluoroscopy time (minutes): 2.2
CONCLUSIONS:
1. Stable coronary artery disease with patent stents in the LAD, RCA, and LCx and no new obstructive lesions.
2. Elevated LV filling pressure and no aortic stenosis on pullback.
RECOMMENDATIONS:
1. Expectant management after cardiac catheterization via right approach.
2. Aggressive secondary prevention of coronary artery disease.
3. Proceed with planned surgical mitral valve repair.
Copy to: Kenan Cruz MD; MAG[facility], [facility]
Signed: Kee Lorenzana MD, PhD
--- NOTE | 2024-03-25 08:50 | W.PN.CD ---
Addendum entered and electronically signed by Kee Lorenzana MD 03/25/24 10:02:
I saw an examined the patient. I agree with the note by GIGI Mariscal. Mr. Retana is a 79M with neck mass, moderate MR, and BPH presenting with chest/neck/arm pain found to have a new pericardial effusion. There is concern for malignancy
given the neck mass and he is undergoing oncologic workup. He is not in tamponade, but is referred for diagnostic/therapeutic pericardiocentesis which was done by me this morning with removal of 510 mL serosanguineous fluid without complication. I
believe this is likely slowly accumulating given lack of tamponade physiology, so the drain was removed. Of note, he also went into Afib with RVR this morning, treated with IV metoprolol with return to sinus rhythm. His Afib may have been caused by
the effusion. We will start low dose beta mushtaq and monitor on telemetry. Given that this appears to be a self limited episode, we will not anticoagulate unless he has further Afib. He will need an echo prior to discharge to check for fluid
reaccumulation. Patient and were updated on the plan.
Original Note:
Today's Communication / Plan
-
Pericardiocentesis today
Impression / Plan
-
BACKGROUND: 79M with neck mass, moderate mitral regurgitation, and BPH who presented with back stiffness with associated jaw/throat soft left upper chest/left arm pain which was worse when he would lay on his left side and also worsened with
inspiration. He was found to have a pericardial effusion.
Pericardial effusion
-Pericardiocentesis today
Atrial fibrillation with rapid ventricular response, new diagnosis
-Lopressor 2.5 mg IV x 1 now
-Oral Anticoagulation: None prior to arrival, hold with pericardiocentesis today
-[id number]: Score at least 2 (age 75 or more), hypercoagulability in the setting of malignancy is not included in this score
Throat, chest, jaw, arm pain
-Likely related to underlying process concerning for malignancy as below
-Also could be in the setting of pericardial effusion
-Troponin less than 0.012 x 2
Suspected malignancy - thyroid, rib lesion, enlarged lymph node, hematology/oncology following
Moderate mitral regurgitation, stable, follow in the outpatient setting
SUBJECTIVE:
He endorses significant anxiety related to this morning's procedure. Emotional support given. He is not having any chest pain or shortness of breath. He was very surprised to find out he was in atrial fibrillation with rapid ventricular response.
Physical Exam
Vital Signs/Labs
Vital Signs
Temp Pulse Resp BP Pulse Ox
97.9 F 74 16 124/73 97
03/25/24 07:32 03/25/24 07:32 03/25/24 07:32 03/25/24 07:32 03/25/24 07:32
03/24/24 03/25/24 03/26/24
06:59 06:59 06:59
Actual Weight 105.5 kg
03/25/24 07:15
03/25/24 07:15
PT 14.7 Sec (11.4-14.6) H 03/23/24 11:45
INR 1.14 03/23/24 11:45
LAB Results
03/23/24
11:45
Troponin I < 0.012
Physical Exam
Constitutional: No acute distress and Comfortable
EENT: Anicteric and Moist mucous membranes
Cardiovascular: Pedal edema is absent and Rhythm/rate is irregular
Respiratory: Respiratory effort normal and Lungs clear to auscul.
GI: Soft, Distention absent, Non tender and Normal bowel sounds
Neuro/Psych: AO x 3
Other: Skin (warm and dry)
Data Reviewed
-
Date of Service: March 25, 2024
--- NOTE | 2024-03-25 09:47 | ITS.CL.CATH ---
First Aid Nurse - Catheterization
Cardiac Catheterization
Procedure Report:
PERICARDIOCENTESIS PROCEDURE NOTE
Date of procedure: 03/25/24
Referring Physician/Provider: Dr. Gigi Phillips MD
Indication: pericardial effusion
Procedure:
After obtaining consent, the patient was brought to the cardiac microbiology lab analyst and placed in a recumbent position. Echocardiogram demonstrated a safe subcostal window. After administration of lido, a 9 cm cook needle was used to gain access to the
pericardial space with return of non-pulsatile serosanguineous fluid. A long 0.035 wire was advanced and seen on fluoroscopy to cross the mid-line. There was no ectopy on the monitor with wire advancement. A 6F sheath and pigtail catheter were then
inserted and the wire removed. Opening pericardial pressure was measured, followed by removal of 510 mL of serosanguineous fluid. Final pericardial pressure was 1 josé miguel. Echo demonstrated no residual fluid. The catheter and sheath were removed and the
fluid sent to the lab for analysis. The patient tolerated the procedure well.
Pericardial Volume (mL): 510
Effusion type: serosanguineous
Pericardial pressures
Pre drainage (mmHg): 13
Post drainage (mmHg): 1
Radiation dose:
Dose (mGy): 37.72
DAP (Gy*cm2): 3.8421
Fluoroscopy Time (minutes): 0.5
Conclusions:
1. Successful pericardiocentesis with 6 Korean pericardial drain via subcostal approach.
2. Pericardial fluid has been sent for laboratory analysis.
Signed: Kee Lorenzana MD, PhD
[2024-03-25 11:53] LABS: Body Fluid Glucose 107 mg/dl; Body Fluid LDH 749 U/L; Body Fluid Protein 5.2 g/dl
--- NOTE | 2024-03-25 12:00 | W.PN.HOSP.TC ---
Today's Communication/Plan
-
Monitor vital signs
see plan
Status post pericardiocentesis. Follow labs
Oncology to see today
Assessment / Plan
Assessment / Plan
General: Well Developed, Well Nourished and No Apparent Distress
HEENT: Normocephalic, Moist mucous membranes, Atraumatic and Other (anterior left neck mass )
Respiratory: Decreased Breath Sounds (bilaterally )
Cardiac: S1/S2 and Regular Rhythm; No Murmur or Rub
GI: Soft, Non Tender, Non Distended and Normal Bowel Sounds
Musculoskeletal: No Edema
Neuro: Nonfocal/grossly intact
Neck pain secondary to left neck lymph node, clinical picture suspicious for malignancy
Oncology following
Cervical MRI with degenerative disease. Enlarged lymph node at the base of the neck on the left.
IR consulted by oncology for possible biopsy
# Pleuritic chest pain/shortness of breath secondary to moderate-sized pericardial effusion
-possible pericarditis from underlying inflammatory process
-EKG shows normal sinus rhythm, no ischemic changes
-Troponin negative
-Check echo 03/24 with EF 60 to 65%, moderate to large pericardial effusion
-Cardiology following, s/p pericardiocentesis 03/25. No drain was put in since there was no residual effusion. Follow-up pericardial fluid labs. Plan for echocardiogram prior to eventual discharge to ensure resolution. During the procedure
patient went into brief episode of atrial fibrillation which was treated with beta-mushtaq. Currently no need for anticoagulation since this was the only episode. If continues to go in A-fib then likely will need anticoagulation.
# Lateral left third rib lesion suspicious for malignancy
Atrial fibrillation, new diagnosis
Diagnosed during pericardiocentesis
Started on metoprolol
CHADVASC 2. Converted to normal sinus rhythm. AC per cardiology if needed
Mild hyponatremia
monitor
# Left upper extremity pain
Does have cervical radiculopathy noted on MRI
-Tylenol, ibuprofen for pain
# 1.5 cm left adrenal nodule
#Thyroid nodules
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 neck 03/14 was without any carotid abnormality. Discussed with radiology and another CT is not necessary. CT neck at that time showed thyroid nodules, 2.5 cm base of left neck lymph node. 3.5 cm soft tissue density involving the lateral
aspect of the third rib
BPH
Full code
DVT prophylaxis heparin
I spent a total of 52 minutes with the patient or on the floor. More than 50% of this time involved counseling and coordination of care.
Anticipated Discharge: > 48 hours
Subjective/Interval History
-
Date of Service: March 25, 2024
denies sob
Objective Data
-
Labs:
Laboratory Results
03/25/24
07:15
WBC 10.0
Hgb 12.8 L
Hct 36.9 L
Plt Count 312
Sodium 133 L
Potassium 4.9
Chloride 98
Carbon Dioxide 25
BUN 21 H
Creatinine 0.8
Glucose 124 H
Calcium 9.2
Total Bilirubin 0.9
AST 31
ALT 31
Alkaline Phosphatase 68
Vital Signs:
Vital Signs
Temp Pulse Resp BP Pulse Ox
97.4 F 82 17 117/63 92
03/25/24 11:00 03/25/24 11:00 03/25/24 11:00 03/25/24 11:00 03/25/24 11:00
I&O
03/24/24 03/25/24 03/26/24
06:59 06:59 06:59
Intake Total 480 / 480 720 / 720
Balance 480 / 480 720 / 720
[2024-03-25 12:09] LABS: Body Fluid Hematocrit 2.1 %; Body Fluid WBC 9790 /CUMM
[2024-03-25 12:17] LABS: Body Fluid Second Tech EF
[2024-03-25 13:11] LABS: Body Fluid Granulocytes 59 %; Body Fluid Lymphocytes 0 %; Body Fluid Macrophages 34 %; Body Fluid Mesothelials 6 %; Body Fluid Other Cells 1 %
[2024-03-25] MEDS: LOPRESSOR 12.5 MG PO (20:37)
[2024-03-26 03:02] VITALS: BP 106/79
[2024-03-26 07:00] VITALS: BP 120/72
[2024-03-26 07:30] LABS: % Basophils 0.7 % (0-2); % Eosinophils 1.8 % (0-6); % Immature Granulocytes 0.9 % (0-0.5); % Lymphocytes 15.4 % (20.5-51.1); % Monocytes 10.7 % (1.7-9.3); % Neutrophils 70.5 % (42.2-75.2); Absolute Basophils 0.1 10^3/uL (0-0.2); Absolute Eosinophils 0.1 10^3/uL (0-0.7); Absolute Immature Granulocytes 0.1 10^3/uL (0-0.05); Absolute Monocytes 0.7 10^3/uL (0.1-0.6); Absolute Neutrophils 4.8 10^3/uL (1.4-6.5); Hematocrit 36.5 % (39.0-52.0); Hemoglobin 12.5 g/dL (13.0-18.0); Mean Corp Hgb Conc. 34.2 g/dL (33.0-37.0); Mean Corpuscular Volume 93.4 fL (80.0-94.0); Mean Platelet Volume 10.4 fL (7.4-10.4); Nucleated Red Blood Cells % 0 % (-); Platelet Count 295 10^3/uL (130-400); Red Blood Cell Count 3.91 10^6/uL (4.70-6.10); Red Cell Dist. Width 12.5 % (11.5-14.5); White Blood Cell Count 6.7 10^3/uL (4.8-10.8)
[2024-03-26 07:59] LABS: ALT (SGPT) 52 U/L (0-50); AST (SGOT) 51 U/L (17-59); Albumin 3.2 g/dl (3.5-5.0); Alkaline Phosphatase 67 U/L (38-126); Blood Urea Nitrogen 21 mg/dl (9-20); Calcium 8.7 mg/dl (8.4-10.2); Carbon Dioxide 29 mmol/L (22-30); Chloride 101 mmol/L (98-107); Estimated Creatinine Clearance 94 ml/min; Glucose 95 mg/dl (70-99); Potassium 4.1 mmol/L (3.5-5.1); Sodium 135 mmol/L (135-145); Total Bilirubin 0.6 mg/dl (0.2-1.3); Total Protein 5.6 g/dl (6.3-8.2); eGFR > 60.00
[2024-03-26] MEDS: HEPARIN SC ×2 (07:59→20:15)
[2024-03-26] MEDS: THERAGRAN 1 TABLET PO (08:00)
[2024-03-26] MEDS: VITAMIN C 500 MG PO (08:00)
[2024-03-26] MEDS: MAGNESIUM OXIDE 250 MG PO (08:00)
[2024-03-26] MEDS: VITAMIN B-12 2500 MCG PO (08:00)
[2024-03-26] MEDS: LOPRESSOR 12.5 MG PO ×2 (08:04→20:15)
[2024-03-26 11:00] VITALS: BP 123/70
--- NOTE | 2024-03-26 11:39 | W.PN.CD ---
Today's Communication / Plan
-
F/u limited TTE Thursday/Thursday
We will sign off, please call with questions/concerns.
Impression / Plan
-
BACKGROUND: 79M with neck mass, moderate mitral regurgitation, and BPH who presented with back stiffness with associated jaw/throat soft left upper chest/left arm pain which was worse when he would lay on his left side and also worsened with
inspiration. He was found to have a pericardial effusion.
Pericardial effusion
-S/p pericardiocentesis
- f/u on Thursday or Thursday limited for eval of effusion
Atrial fibrillation with rapid ventricular response, new diagnosis
-Lopressor 2.5 mg IV x 1 now
- will hold off on AC as likely provoked from effusion
Throat, chest, jaw, arm pain
-Likely related to underlying process concerning for malignancy as below
-Also could be in the setting of pericardial effusion
-Troponin less than 0.012 x 2
Suspected malignancy - thyroid, rib lesion, enlarged lymph node, hematology/oncology following
Moderate mitral regurgitation, stable, follow in the outpatient setting
SUBJECTIVE:
Feeling better no new CV symptoms
Physical Exam
Vital Signs/Labs
Vital Signs
Temp Pulse Resp BP Pulse Ox
97.6 F 69 16 120/72 92
03/26/24 07:00 03/26/24 08:04 03/26/24 07:00 03/26/24 08:04 03/26/24 09:35
03/26/24 05:59
03/26/24 05:59
PT 14.7 Sec (11.4-14.6) H 03/23/24 11:45
INR 1.14 03/23/24 11:45
LAB Results
03/23/24
11:45
Troponin I < 0.012
Physical Exam
Constitutional: No acute distress
EENT: Anicteric
Cardiovascular: Rhythm & rate is regular and Pedal edema is absent
Respiratory: Respiratory effort normal and Lungs clear to auscul.
GI: Soft
Neuro/Psych: AO x 3
Data Reviewed
-
Date of Service: March 26, 2024
EKG: Tracing Personally Visualized and interpreted (sr)
Echo: Report Reviewed by me
Labs: Labs Reviewed by me
--- NOTE | 2024-03-26 11:56 | W.PN.HOSP.TC ---
Today's Communication/Plan
-
Monitor vital signs see plan
Echocardiogram Thursday/Thursday prior to discharge to ensure resolution
Discussed with IR and they will make another attempt for biopsy 03/28, Thursday. Discussed with IR. Will make n.p.o. after breakfast Thursday
cw metoprolol
Assessment / Plan
Assessment / Plan
General: Well Developed, Well Nourished and No Apparent Distress
HEENT: Normocephalic, Moist mucous membranes, Atraumatic and Other (anterior left neck mass )
Respiratory: Clear to auscultation, no wheezing
Cardiac: S1/S2 and Regular Rhythm; No Murmur or Rub
GI: Soft, Non Tender, Non Distended and Normal Bowel Sounds
Musculoskeletal: No Edema
Neuro: Nonfocal/grossly intact
Neck pain secondary to left neck lymph node, clinical picture suspicious for malignancy
Oncology following
Cervical MRI with degenerative disease. Enlarged lymph node at the base of the neck on the left.
IR consulted by oncology for possible biopsy; IR biopsy was attempted 03/25 however patient developed severe pain so got canceled. IR thinks this could be secondary to possible peripheral nerve sheath tumor. They would like to attempt again with
sedation probably with anesthesia. Discussed with IR and they will perform again 03/27/2024.
# Pleuritic chest pain/shortness of breath secondary to moderate-sized pericardial effusion
-chest pain resolved
-EKG shows normal sinus rhythm, no ischemic changes
-Troponin negative
-Check echo 03/24 with EF 60 to 65%, moderate to large pericardial effusion
-Cardiology following, s/p pericardiocentesis 03/25. No drain was put in since there was no residual effusion. Follow-up path. Plan for echocardiogram prior to eventual discharge to ensure resolution thursday vs thursday. During the procedure
patient went into brief episode of atrial fibrillation which was treated with beta-mushtaq. Currently no need for anticoagulation since this was the only episode. If continues to go in A-fib then likely will need anticoagulation.
# Lateral left third rib lesion suspicious for malignancy
Atrial fibrillation, new diagnosis
Diagnosed during pericardiocentesis
Started on metoprolol
CHADVASC 2. Converted to normal sinus rhythm. AC per cardiology if needed
Mild hyponatremia
monitor
# Left upper extremity pain
Does have cervical radiculopathy noted on MRI
-Tylenol, ibuprofen for pain
# 1.5 cm left adrenal nodule
#Thyroid nodules
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 neck 03/14 was without any carotid abnormality. Discussed with radiology and another CT is not necessary. CT neck at that time showed thyroid nodules, 2.5 cm base of left neck lymph node. 3.5 cm soft tissue density involving the lateral
aspect of the third rib
BPH
Full code
DVT prophylaxis heparin
Anticipated Discharge: > 48 hours
Subjective/Interval History
-
Date of Service: March 26, 2024
denies pain
Objective Data
-
Labs:
Laboratory Results
03/26/24
05:59
WBC 6.7
Hgb 12.5 L
Hct 36.5 L
Plt Count 295
Sodium 135
Potassium 4.1
Chloride 101
Carbon Dioxide 29
BUN 21 H
Creatinine 0.8
Glucose 95
Calcium 8.7
Total Bilirubin 0.6
AST 51
ALT 52 H
Alkaline Phosphatase 67
Vital Signs:
Vital Signs
Temp Pulse Resp BP Pulse Ox
97.6 F 69 16 120/72 92
03/26/24 07:00 03/26/24 08:04 03/26/24 07:00 03/26/24 08:04 03/26/24 09:35
I&O
03/25/24 03/26/24 03/27/24
06:59 06:59 06:59
Intake Total 720 / 720 480 / 480
Balance 720 / 720 480 / 480
[2024-03-26 15:00] VITALS: BP 124/67
[2024-03-26 19:36] VITALS: BP 138/77
[2024-03-26 23:32] VITALS: BP 113/59
[2024-03-27 03:26] VITALS: BP 126/80
[2024-03-27 07:00] VITALS: BP 120/80
[2024-03-27] MEDS: HEPARIN SC ×3 (07:32→21:38)
[2024-03-27] MEDS: LOPRESSOR 12.5 MG PO ×2 (07:33→21:35)
[2024-03-27] MEDS: MAGNESIUM OXIDE 250 MG PO (07:33)
[2024-03-27] MEDS: VITAMIN B-12 2500 MCG PO (07:34)
[2024-03-27] MEDS: THERAGRAN 1 TABLET PO (07:34)
[2024-03-27] MEDS: VITAMIN C 500 MG PO (07:34)
[2024-03-27 11:00] VITALS: BP 126/77
--- NOTE | 2024-03-27 11:05 | W.PN.HOSP.TC ---
Today's Communication/Plan
-
Monitor vital signs
see plan
Plan for left neck jaspal biopsy with IR tomorrow. N.p.o. after breakfast tomorrow. Discussed with IR
Will need echocardiogram prior to discharge to ensure resolution, patient will follow-up with cardiology outpatient
follow up path
Assessment / Plan
Assessment / Plan
General: Well Developed, Well Nourished and No Apparent Distress
HEENT: Normocephalic, Moist mucous membranes, Atraumatic and Other (anterior left neck mass )
Respiratory: Clear to auscultation, no wheezing
Cardiac: S1/S2 and Regular Rhythm; No Murmur or Rub
GI: Soft, Non Tender, Non Distended and Normal Bowel Sounds
Musculoskeletal: No Edema
Neuro: Nonfocal/grossly intact
Neck pain secondary to left neck lymph node, clinical picture suspicious for malignancy
Oncology following
Cervical MRI with degenerative disease. Enlarged lymph node at the base of the neck on the left.
IR consulted by oncology for possible biopsy; IR biopsy was attempted 03/25 however patient developed severe pain so got canceled. IR thinks this could be secondary to possible peripheral nerve sheath tumor. They would like to attempt again with
sedation probably with anesthesia. Discussed with IR and they will perform again 03/27/2024.
# Pleuritic chest pain/shortness of breath secondary to moderate-sized pericardial effusion
-chest pain resolved
-EKG shows normal sinus rhythm, no ischemic changes
-Troponin negative
-Check echo 03/24 with EF 60 to 65%, moderate to large pericardial effusion
-Cardiology following, s/p pericardiocentesis 03/25. No drain was put in since there was no residual effusion. Follow-up path. Plan for echocardiogram prior to eventual discharge to ensure resolution thursday vs thursday. During the procedure
patient went into brief episode of atrial fibrillation which was treated with beta-mushtaq. Currently no need for anticoagulation since this was the only episode. If continues to go in A-fib then likely will need anticoagulation.
# Lateral left third rib lesion suspicious for malignancy
Atrial fibrillation, new diagnosis
Diagnosed during pericardiocentesis
Started on metoprolol
CHADVASC 2. Converted to normal sinus rhythm. AC per cardiology if needed. at this time cardiology is not recommending anticoagulation
Mild hyponatremia
monitor
# Left upper extremity pain
Does have cervical radiculopathy noted on MRI
-Tylenol, ibuprofen for pain
# 1.5 cm left adrenal nodule
#Thyroid nodules
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 neck 03/14 was without any carotid abnormality. Discussed with radiology and another CT is not necessary. CT neck at that time showed thyroid nodules, 2.5 cm base of left neck lymph node. 3.5 cm soft tissue density involving the lateral
aspect of the third rib
BPH
Full code
DVT prophylaxis heparin
Anticipated Discharge: 24 - 48 hours
Subjective/Interval History
-
Date of Service: March 27, 2024
Denies pain
Objective Data
-
Labs:
Laboratory Results
03/27/24
06:00
WBC Pending
Hgb Pending
Hct Pending
Plt Count Pending
Sodium Pending
Potassium Pending
Chloride Pending
Carbon Dioxide Pending
BUN Pending
Creatinine Pending
Glucose Pending
Calcium Pending
Total Bilirubin Pending
AST Pending
ALT Pending
Alkaline Phosphatase Pending
Vital Signs:
Vital Signs
Temp Pulse Resp BP Pulse Ox
98.3 F 78 16 120/80 95
03/27/24 07:00 03/27/24 07:33 03/27/24 07:00 03/27/24 07:33 03/27/24 09:01
I&O
03/26/24 03/27/24 03/28/24
06:59 06:59 06:59
Intake Total 480 / 480 1320 / 1320
Balance 480 / 480 1320 / 1320
[2024-03-27 12:05] LABS: % Basophils 0.8 % (0-2); % Eosinophils 2.2 % (0-6); % Immature Granulocytes 0.7 % (0-0.5); % Lymphocytes 16.1 % (20.5-51.1); % Neutrophils 70.2 % (42.2-75.2); Absolute Basophils 0.1 10^3/uL (0-0.2); Absolute Eosinophils 0.2 10^3/uL (0-0.7); Absolute Immature Granulocytes 0.1 10^3/uL (0-0.05); Absolute Lymphocytes 1.2 10^3/uL (1.2-3.4); Absolute Monocytes 0.7 10^3/uL (0.1-0.6); Absolute Neutrophils 5.1 10^3/uL (1.4-6.5); Hematocrit 40.1 % (39.0-52.0); Hemoglobin 13.9 g/dL (13.0-18.0); Mean Corp Hgb Conc. 34.7 g/dL (33.0-37.0); Mean Corpuscular Hgb 31.3 pg (27.0-31.0); Mean Corpuscular Volume 90.3 fL (80.0-94.0); Mean Platelet Volume 9.8 fL (7.4-10.4); Nucleated Red Blood Cells % 0 % (-); Platelet Count 393 10^3/uL (130-400); Red Blood Cell Count 4.44 10^6/uL (4.70-6.10); Red Cell Dist. Width 12.5 % (11.5-14.5); White Blood Cell Count 7.3 10^3/uL (4.8-10.8)
[2024-03-27 12:16] LABS: ALT (SGPT) 51 U/L (0-50); AST (SGOT) 43 U/L (17-59); Albumin 3.8 g/dl (3.5-5.0); Alkaline Phosphatase 68 U/L (38-126); Blood Urea Nitrogen 16 mg/dl (9-20); Calcium 9.5 mg/dl (8.4-10.2); Carbon Dioxide 28 mmol/L (22-30); Chloride 100 mmol/L (98-107); Estimated Creatinine Clearance 107 ml/min; Glucose 80 mg/dl (70-99); Potassium 4.7 mmol/L (3.5-5.1); Sodium 136 mmol/L (135-145); Total Bilirubin 0.5 mg/dl (0.2-1.3); Total Protein 6.4 g/dl (6.3-8.2); eGFR > 60.00
[2024-03-27 15:00] VITALS: BP 147/77
[2024-03-27 19:10] VITALS: BP 117/69
[2024-03-27 23:19] VITALS: BP 136/74
[2024-03-28] VITALS (7 sets, daily range): BP systolic 72–156; BP diastolic 60–82
[2024-03-28 07:24] LABS: % Basophils 0.9 % (0-2); % Eosinophils 2.8 % (0-6); % Immature Granulocytes 0.7 % (0-0.5); % Lymphocytes 15.8 % (20.5-51.1); % Monocytes 8.1 % (1.7-9.3); % Neutrophils 71.7 % (42.2-75.2); Absolute Basophils 0.1 10^3/uL (0-0.2); Absolute Eosinophils 0.2 10^3/uL (0-0.7); Absolute Immature Granulocytes 0.1 10^3/uL (0-0.05); Absolute Lymphocytes 1.2 10^3/uL (1.2-3.4); Absolute Monocytes 0.6 10^3/uL (0.1-0.6); Absolute Neutrophils 5.4 10^3/uL (1.4-6.5); Hemoglobin 13.9 g/dL (13.0-18.0); Mean Corp Hgb Conc. 34.8 g/dL (33.0-37.0); Mean Corpuscular Hgb 30.8 pg (27.0-31.0); Mean Corpuscular Volume 88.5 fL (80.0-94.0); Mean Platelet Volume 9.6 fL (7.4-10.4); Nucleated Red Blood Cells % 0 % (-); Platelet Count 405 10^3/uL (130-400); Red Blood Cell Count 4.52 10^6/uL (4.70-6.10); Red Cell Dist. Width 12.6 % (11.5-14.5); White Blood Cell Count 7.5 10^3/uL (4.8-10.8)
[2024-03-28] MEDS: LOPRESSOR 12.5 MG PO ×2 (07:53→22:12)
[2024-03-28] MEDS: VITAMIN B-12 2500 MCG PO (07:53)
[2024-03-28] MEDS: VITAMIN C 500 MG PO (07:54)
[2024-03-28] MEDS: THERAGRAN 1 TABLET PO (07:54)
[2024-03-28] MEDS: MAGNESIUM OXIDE 250 MG PO (07:54)
[2024-03-28] MEDS: HEPARIN SC (07:58)
[2024-03-28 08:27] LABS: ALT (SGPT) 63 U/L (0-50); AST (SGOT) 47 U/L (17-59); Albumin 3.6 g/dl (3.5-5.0); Alkaline Phosphatase 70 U/L (38-126); Blood Urea Nitrogen 16 mg/dl (9-20); Calcium 9.5 mg/dl (8.4-10.2); Carbon Dioxide 26 mmol/L (22-30); Chloride 104 mmol/L (98-107); Estimated Creatinine Clearance 94 ml/min; Glucose 104 mg/dl (70-99); Potassium 4.7 mmol/L (3.5-5.1); Sodium 136 mmol/L (135-145); Total Bilirubin 0.6 mg/dl (0.2-1.3); Total Protein 6.2 g/dl (6.3-8.2); eGFR > 60.00
--- NOTE | 2024-03-28 08:38 | W.PN.ONC ---
Today's Communication / Plan
-
03/24 Cervical spine MRI: Degenerative disease. Enlarged lymph node at the base of the neck on the left.
IR biopsy was attempted 03/25 however patient developed severe pain so got canceled. IR thinks this could be secondary to possible peripheral nerve sheath tumor. They would like to attempt again with sedation probably with anesthesia
Repeat IR biopsy of the cervical lymph node planned for today, 03/28/24 at 14:00
ECHO prior to d/c per Cardiology
Supportive care
Pain management
Await Path
We will follow.
Impression
Impression
Pleural and pericardial effusions
CT findings concerning for malignancy
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
Enlarged left cervical lymph node
Subjective/Objective
Subjective/Objective
Patient is sitting up in the chair. He offers no acute complaints at this time. He is NPO pending IR.
Vital Signs:
Vital Signs
Temp Pulse Resp BP Pulse Ox
98.2 F 74 18 121/79 94
03/28/24 04:13 03/28/24 07:53 03/28/24 04:13 03/28/24 07:53 03/28/24 04:13
physical exam unchanged.
Lab Results:
Laboratory Data
WBC 7.5 10^3/uL (4.8-10.8) 03/28/24 07:04
Hgb 13.9 g/dL (13.0-18.0) 03/28/24 07:04
Plt Count 405 10^3/uL (130-400) H 03/28/24 07:04
PT 14.7 Sec (11.4-14.6) H 03/23/24 11:45
INR 1.14 03/23/24 11:45
eGFR > 60.00 03/28/24 07:04
03/24/24: Cervical spine MRI: No compression deformity. No abnormal bone marrow signal intensity or enhancement. No intrinsic cervical cord signal alteration.
Discogenic, uncinate, and facet changes, as described.C2-3: Mild bilateral foraminal narrowing.C3-4: Small to moderate protrusion. Moderate central canal stenosis. Mild cord compression. Moderate to advanced right and mild left foraminal
stenosis.C4-5: Tiny protrusion. Mild to moderate central canal narrowing. Subtle cord compression. Moderate to advanced foraminal narrowing, right greater than left.C5-6: Disc osteophyte complex. Mild cord compression. Minor central canal narrowing.
Advanced right and moderate to advanced left foraminal stenosis.C6-7: Small to moderate posterior central broad-based disc protrusion with effacement of anterior subarachnoid space and mild cord compression. Mild central canal narrowing. Enlarged
lymph node at the base of the neck on the left, corresponding to the finding on CT examination.
--- NOTE | 2024-03-28 09:51 | CM ---
Reviewed chart, per oncology note, repeat IR biopsy of the cervical lymph node planned for today, 03/28/24 at 14:00. Patient has no skilled needs and has been noted to be performing all ADLs and personal care on an independent level.
Plan: Case management will continue to follow and assist with discharge planning. Home when stable.
--- NOTE | 2024-03-28 13:22 | W.PN.HOSP.TC ---
Today's Communication/Plan
-
For repeat IR guided lymph node biopsy
Continue current regimen of Tylenol/Motrin for pain control
Repeat echo per cardiology
Assessment / Plan
Assessment / Plan
1. Cervical lymphadenopathy
Rule out malignancy
-Neck pain secondary to left neck lymph node, clinical picture suspicious for malignancy
-Cervical MRI with degenerative disease. Enlarged lymph node at the base of the neck on the left.
-IR consulted by oncology for possible biopsy; IR biopsy was attempted 03/25 however patient developed severe pain so got canceled.
-IR thinks this could be secondary to possible peripheral nerve sheath tumor. Patient undergo repeat IR guided biopsy with help of anesthesia today
-Oncology following and help appreciated
2. Pericardial effusion
Suspected acute pericarditis
-Patient underwent pericardiocentesis with drainage of 510 mL serosanguineous fluid. Fungal/AFB/Bacterial culture neg. Pathology report pending
-Cardio following and planning to do a repeat echocardiogram before discharge
-If any repeat occurrence of sternal chest pain will need to be started on NSAIDs/colchicine to cover for pericarditis.
3. Lateral left third rib lesion suspicious for malignancy
-For differential patient also reports of having injury to ribs in the past
4. Atrial fibrillation
-Diagnosed during pericardiocentesis and brief episode
-Started on metoprolol
-CHADVASC 2. Spontaneously converted to sinus rhythm after brief run of A-fib, cardiology not recommending anticoagulation at this point
5. Mild hyponatremia
monitor
6. Left upper extremity pain
-Does have cervical radiculopathy noted on MRI
-Tylenol, ibuprofen for pain
1.5 cm left adrenal nodule
Thyroid nodules
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
BPH
Full code
DVT prophylaxis heparin
Anticipated Discharge: 24 - 48 hours
Subjective/Interval History
-
Date of Service: March 28, 2024
Resting comfortably in chair
Reported neck pain is improved
no reported chest pain/shortness breath
Objective Data
-
Labs:
Laboratory Results
03/28/24
07:04
WBC 7.5
Hgb 13.9
Hct 40.0
Plt Count 405 H
Sodium 136
Potassium 4.7
Chloride 104
Carbon Dioxide 26
BUN 16
Creatinine 0.8
Glucose 104 H
Calcium 9.5
Total Bilirubin 0.6
AST 47
ALT 63 H
Alkaline Phosphatase 70
Vital Signs:
Vital Signs
Temp Pulse Resp BP Pulse Ox
97.6 F 64 18 138/75 94
03/28/24 11:45 03/28/24 11:45 03/28/24 11:45 03/28/24 11:45 03/28/24 11:45
I&O
03/27/24 03/28/24 03/29/24
06:59 06:59 06:59
Intake Total 1320 / 1320 1460 / 1460
Balance 1320 / 1320 1460 / 1460
Review of Systems
-
Respiratory: Denies Cough or Trouble Breathing
Cardiac: Reports No Symptoms
Abdomen/GI: Reports No Symptoms
Physical Exam
-
General: No Apparent Distress and Comfortable
HEENT: Negative Oxygen
Respiratory: Clear to Auscultation
Cardiac: Regular Rhythm and S1/S2; Negative Murmur or Rub
GI: Soft, Nontender, Nondistended and Normal Bowel Sounds
Musculoskeletal: No Edema
Neuro: Awake, Alert, Oriented, No Motor Deficits and Nonfocal/Grossly Intact
Psych: Calm
[2024-03-28] MEDS: HEPARIN 5000 UNITS SC (22:13)
[2024-03-29 03:37] VITALS: BP 134/67
[2024-03-29 07:00] VITALS: BP 129/56
--- NOTE | 2024-03-29 09:05 | W.PN.ONC ---
Today's Communication / Plan
-
03/24 Cervical spine MRI: Degenerative disease. Enlarged lymph node at the base of the neck on the left.
IR biopsy was attempted 03/25 however patient developed severe pain so this was canceled. IR believed this could be secondary to possible peripheral nerve sheath tumor. They would like to attempt again with sedation/anesthesia. Biopsy could not be
performed 03/28/24 due to patient having eaten within 8 hour window.
NPO today
IR biopsy of the cervical lymph node is planned this morning 03/29/24 - confirmed with IRAD
ECHO per Cards
Supportive care/emotional support
Pain management
Await path from node bx.
We will follow
Impression
Impression
Pleural and pericardial effusions
CT findings concerning for malignancy
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
Enlarged left cervical lymph node
Subjective/Objective
Subjective/Objective
patient states he feels fine this morning. he was frustrated regarding LN biopsy being postponed. denies pain or acute symptoms.
Vital Signs:
Vital Signs
Temp Pulse Resp BP Pulse Ox
97.8 F 72 18 129/56 95
03/29/24 07:00 03/29/24 07:00 03/29/24 07:00 03/29/24 07:00 03/29/24 07:00
Lab Results:
Laboratory Data
WBC 7.5 10^3/uL (4.8-10.8) 03/28/24 07:04
Hgb 13.9 g/dL (13.0-18.0) 03/28/24 07:04
Plt Count 405 10^3/uL (130-400) H 03/28/24 07:04
PT 14.7 Sec (11.4-14.6) H 03/23/24 11:45
INR 1.14 03/23/24 11:45
eGFR > 60.00 03/28/24 07:04
physical exam unchanged.
[2024-03-29 10:05] VITALS: BP 115/62; BP_SYST 68
--- NOTE | 2024-03-29 10:28 | W.PN.HOSP.TC ---
Today's Communication/Plan
-
d/c home
Assessment / Plan
Assessment / Plan
1. Cervical lymphadenopathy
Rule out malignancy
-Neck pain secondary to left neck lymph node, clinical picture suspicious for malignancy
-Cervical MRI with degenerative disease. Enlarged lymph node at the base of the neck on the left.
-IR consulted by oncology for possible biopsy; IR biopsy was attempted 03/25 however patient developed severe pain so got canceled.
-IR thinks this could be secondary to possible peripheral nerve sheath tumor. Patient underwent IR biopsy today, f/u with oncology in office for result f/u
-Oncology following and help appreciated
2. Pericardial effusion
Suspected acute pericarditis
-Patient underwent pericardiocentesis with drainage of 510 mL serosanguineous fluid. Fungal/AFB/Bacterial culture neg. Pathology report pending
-Repeat echocardiogram showed pericardial thickening and no significant effusion
-If any repeat occurrence of sternal chest pain will need to be started on NSAIDs/colchicine to cover for pericarditis.
3. Lateral left third rib lesion suspicious for malignancy
-For differential patient also reports of having injury to ribs in the past
4. Atrial fibrillation
-Diagnosed during pericardiocentesis and brief episode
-Started on metoprolol
-CHADVASC 2. Spontaneously converted to sinus rhythm after brief run of A-fib, cardiology not recommending anticoagulation at this point
5. Mild hyponatremia
monitor
6. Left upper extremity pain
-Does have cervical radiculopathy noted on MRI
-Tylenol, ibuprofen for pain
1.5 cm left adrenal nodule
Thyroid nodules
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
BPH
Full code
DVT prophylaxis heparin
More than 30 minutes spent in discharge including
Final examination of the patient
Summarizing hospital stay
Instructions for continuing care to all relevant caregivers
Preparation of discharge records, prescriptions, and referral forms
Total time spent (in minutes): 38 mins
Anticipated Discharge: Today
Subjective/Interval History
-
Date of Service: March 29, 2024
no pain post LN biopsy
no other reported problems
Objective Data
-
Vital Signs:
Vital Signs
Temp Pulse Resp BP Pulse Ox
97.6 F 68 19 115/62 99
03/29/24 10:05 03/29/24 10:05 03/29/24 10:05 03/29/24 10:05 03/29/24 10:05
I&O
03/28/24 03/29/24 03/30/24
06:59 06:59 06:59
Intake Total 1460 / 1460 1080 / 1080
Balance 1460 / 1460 1080 / 1080
Review of Systems
-
Respiratory: Reports No Symptoms
Cardiac: Reports No Symptoms
Abdomen/GI: Reports No Symptoms
Physical Exam
-
General: No Apparent Distress and Comfortable
HEENT: Negative Oxygen
Respiratory: Clear to Auscultation
Cardiac: Regular Rhythm and S1/S2; Negative Murmur or Rub
GI: Soft, Nontender, Nondistended and Normal Bowel Sounds
Musculoskeletal: No Edema
Neuro: Awake, Alert, Oriented, No Motor Deficits and Nonfocal/Grossly Intact
Psych: Calm
[2024-03-29 11:20] VITALS: BP 113/69; BP_SYST 67
[2024-03-29 11:25] VITALS: BP 113/56; BP_SYST 65
[2024-03-29 11:30] VITALS: BP 104/65; BP_SYST 64
[2024-03-29] MEDS: VITAMIN B-12 2500 MCG PO (11:48)
[2024-03-29] MEDS: MAGNESIUM OXIDE 250 MG PO (11:48)
[2024-03-29] MEDS: VITAMIN C 500 MG PO (11:48)
[2024-03-29] MEDS: THERAGRAN 1 TABLET PO (11:49)
[2024-03-29] MEDS: HEPARIN 5000 UNITS SC (11:49)
[2024-03-29] MEDS: LOPRESSOR 12.5 MG PO (11:49)
--- NOTE | 2024-03-30 08:06 | W.DCSUMMARY ---
Discharge Summary
Discharge Data
Date of Admission: 03/23/24
Date of Discharge: 03/29/24
-
Pending Results: No
Hospital Course
Discharging Physician : Dr Giacomo Espinosa
Disposition : Home
Primary care physician : Dr León Mendosa
Principal Discharge diagnosis :
Cervical lymphadenopathy
Cervical spinal stenosis/mild cord compression
Pericardial effusion without tamponade
Adrenal gland nodule
Chronic Discharge diagnosis :
Paroxysmal atrial fibrillation
Thyroid nodules
History of left carotid artery tumor
Benign prostatic hyperplasia
Hospital Course :
Patient is a 79-year-old male with above-mentioned past medical history came to ER for having new onset of neck pain, chest pain and left arm pain. Patient had some pain 1 week before the ER visit although it resolved spontaneously. Patient did
not have any associated cardiopulmonary complaints. Initial EKG and troponin was not suggestive of any ongoing ACS. Cardiology was involved in care and patient underwent an echocardiogram which showed a pericardial effusion without tamponade. In
light of patient symptom pattern patient had underwent a pericardiocentesis with drainage of approximately 510 mL of serosanguineous fluid. Culture report was negative. cytopathology report is pending at time of discharge. Patient had repeat
echocardiogram and did not show any recollection. Patient will follow-up with cardiology in office.
For ongoing neck pain patient had a cervical spine MRI which showed spinal stenosis and foraminal narrowing. MRI also showing mild cord compression although no clinical signs to support this. Patient was incidentally found to have a enlarged lymph
node in the area and oncology was involved in care for evaluation. Also CT neck from previous visit was also showing some lytic lesion of left sided ribs. Patient underwent trial of IR guided biopsy although could not tolerate the procedure due to
pain. Reattempt was done with help of anesthesia which was successful. Biopsy report is pending at the time of discharge.
Patient was discharged home at this point with plan to follow-up with oncology in office.
Important imaging findings :
None
Procedure findings :
None
Discharge Plan
-
Patient Disposition: Home (Routine Discharge)
Discharge Diagnosis/Procedures: Pericardial effusion, Cervical lymphadenopathy
Condition: Fair
Diet: Regular
Activity: As tolerated
Driving Restrictions: As prior to admission
Bathing Restrictions: OK to Shower
Others Tests: You will need a follow-up echocardiogram. This will be arranged by the cardiology office after your office visit.
Activity Restrictions/Additional Instructions:
Need to follow up with oncologist office for Lymph node biopsy report
Need to follow up with maintenance director office for pericardial fluid cytopathology report
Referrals:
Avni Allison DO [Active] - in one week
León Mendosa MD [Family Provider] - in one week
Gigi Phillips MD [Active] - 04/18/24 3:20 pm
Prescriptions:
New
metoprolol tartrate 25 mg Tablet
12.5 mg PO BID Qty: 60 2RF
acetaminophen [Tylenol Extra Strength] 500 mg tablet
1,000 mg PO Q6H PRN (Reason: Pain) Qty: 90 0RF
ibuprofen 600 mg tablet
600 mg PO Q8H PRN (Reason: Pain) Qty: 14 0RF
Rx Instructions:
Use if tylenol doesn't help with pain.
USE SPARINGLY
Continued
zinc 15 mg Tablet
30 mg PO DAILY
garlic 300 mg Capsule
300 mg PO DAILY
therapeutic multivitamin Tablet
1 tab PO DAILY
ascorbic acid (vitamin C) [Vitamin C] 500 mg Tablet
500 mg PO DAILY
magnesium oxide 500 mg magnesium Tablet
250 mg PO DAILY
glucosam-sod chondro-vit C-angela Tablet
2 tab PO DAILY
coQ10 (ubiquinol) 100 mg Capsule
100 mg PO DAILY
cyanocobalamin (vitamin B-12) 2,500 mcg Tablet
2,500 mcg PO DAILY
Discontinued
acetaminophen [Tylenol] 325 mg Tablet
650 mg PO BIDPRN PRN (Reason: mild pain)
Discharge Orders:
Discharge Patient (As Directed); Ordered 03/29/24
Ordered By: Giacomo Espinosa
Discharge Date and Time
Discharge Date/Time: 03/29/24 14:50
Print Language: GREEK
== END 2024-03-29 14:50 | disposition home or self-care (01) | DRG 516 ==
LOC: 3 WEST ACU 16:57
PROVIDERS: Emergency Medicine; Internal Medicine; Radiology Vascular & Interventional Radiology; Student in an Organized Health Care Education/Training Program; ADMITTING PHYSICIAN Hospitalist; ATTENDING PHYSICIAN Hospitalist; CONSULT PHYSICIAN Internal Medicine Hematology & Oncology; EMERGENCY PHYSICIAN Student in an Organized Health Care Education/Training Program; FAMILY PHYSICIAN Family Medicine; OTHER PHYSICIAN Internal Medicine Cardiovascular Disease
PROC: 4A023N7 Measurement of Cardiac Sampling and Pressure, Left Heart, Percutaneous Approach (ICD-10-PCS; 2024-03-23)
PROC: B2111ZZ Fluoroscopy of Multiple Coronary Arteries using Low Osmolar Contrast (ICD-10-PCS; 2024-03-23)
PROC: 0W9D3ZX Drainage of Pericardial Cavity, Percutaneous Approach, Diagnostic (ICD-10-PCS; 2024-03-25)
PROC: 07B23ZX Excision of Left Neck Lymphatic, Percutaneous Approach, Diagnostic (ICD-10-PCS; 2024-03-29)
DX: D36.11 Benign neoplasm of peripheral nerves and autonomic nervous system of face, head, and neck (principal); E87.1 Hypo-osmolality and hyponatremia; I31.39 Other pericardial effusion (noninflammatory); E04.2 Nontoxic multinodular goiter; I34.0 Nonrheumatic mitral (valve) insufficiency; E27.8 Other specified disorders of adrenal gland; I48.91 Unspecified atrial fibrillation; I25.10 Atherosclerotic heart disease of native coronary artery without angina pectoris; Z95.5 Presence of coronary angioplasty implant and graft; N40.0 Benign prostatic hyperplasia without lower urinary tract symptoms; M48.02 Spinal stenosis, cervical region; M54.2 Cervicalgia; M54.9 Dorsalgia, unspecified; M79.602 Pain in left arm; R59.0 Localized enlarged lymph nodes; Z88.0 Allergy status to penicillin; Z80.0 Family history of malignant neoplasm of digestive organs
CPT/HCPCS: 88305; 93308; 33016; 38505; 71046; 71275; 72156; 76942; 80053; 82945; 83615; 84157; 84443; 84484; 85014; 85025; 85610; 86803; 87015; 87070; 87102; 87116; 87205; 87206; 87811; 88112; 88333; 88341; 88342; 89051; 93005; 93306; 99285; A9575; C1894; Q9967

== ENCOUNTER 2024-04-06 15:06 | Emergency (ER) | payer OTHER, SELFPAY ==
[2024-04-06 15:32] VITALS: BP 113/77
--- NOTE | 2024-04-06 15:38 | ED.PDOC.TRB ---
ED Provider Triage
-
Patient seen by provider in Triage?: Seen in Triage
A medical screening examination has been initiated by a qualified medical provider. Based on the assessment performed at this time, it has been determined that an emergent medical condition may exist and the patient has been informed that further
medical evaluation and possible additional diagnostic testing may be needed.
HPI: This is a medical evaluation conducted in person to initiate diagnostic evaluation and provide initial therapeutics. Please see further documentation by the treating clinician.
GENERAL: Alert ,tearful
EYE: No visual abnormalities.
NECK: Trachea midline
ENT: No visible abnormalities.
LUNGS: No acute respiratory distress
NEUROLOGICAL: Alert and oriented
SKIN: no visible lesions.
MUSCULOSKELETAL: Moving extremities normally
PSYCH: Normal and appropriate interaction.
79-year-old male presenting to the emergency department with concerns of neck discomfort with deep breaths. No ongoing neck pain unless taking a deep breath. Recently was told he had an enlarged lymph node to the left side of his neck. He is
unsure if this is causing symptoms specifically. His and able to eat and drink. Denies any chest pain shortness of breath. Initial lab work and EKG ordered pending additional assessment.
[2024-04-06 15:54] LABS: % Basophils 0.4 % (0-2); % Eosinophils 0.7 % (0-6); % Immature Granulocytes 0.6 % (0-0.5); % Lymphocytes 8.7 % (20.5-51.1); % Monocytes 9.1 % (1.7-9.3); % Neutrophils 80.5 % (42.2-75.2); Absolute Basophils 0.1 10^3/uL (0-0.2); Absolute Eosinophils 0.1 10^3/uL (0-0.7); Absolute Immature Granulocytes 0.1 10^3/uL (0-0.05); Absolute Lymphocytes 1.1 10^3/uL (1.2-3.4); Absolute Monocytes 1.1 10^3/uL (0.1-0.6); Absolute Neutrophils 10.1 10^3/uL (1.4-6.5); Hemoglobin 13.6 g/dL (13.0-18.0); Mean Corp Hgb Conc. 34.9 g/dL (33.0-37.0); Mean Corpuscular Volume 88.8 fL (80.0-94.0); Mean Platelet Volume 10.2 fL (7.4-10.4); Nucleated Red Blood Cells % 0 % (-); Platelet Count 317 10^3/uL (130-400); Red Blood Cell Count 4.39 10^6/uL (4.70-6.10); Red Cell Dist. Width 12.5 % (11.5-14.5); White Blood Cell Count 12.5 10^3/uL (4.8-10.8)
[2024-04-06 16:05] LABS: Blood Urea Nitrogen 17 mg/dl (9-20); Calcium 9.2 mg/dl (8.4-10.2); Carbon Dioxide 26 mmol/L (22-30); Chloride 101 mmol/L (98-107); Glucose 120 mg/dl (70-99); Potassium 4.8 mmol/L (3.5-5.1); Sodium 138 mmol/L (135-145); eGFR > 60.00
[2024-04-06 19:18] VITALS: BP 121/74
--- NOTE | 2024-04-06 20:18 | ED.GENMED ---
History of Present Illness
General
Chief Complaint: Breathing Problem
Source: patient
Exam Limitations: none
Time Seen by Provider: 04/06/24 19:19
History of Present Illness
History of Present Illness:
79-year-old male presents with persistent anterior neck pain. He states it has been ongoing for about a month. Patient states that he was here and admitted that he had a biopsy of his neck and had multiple imaging studies including MRI and CT
scan. He states he is not really sure what is going on. He is not sure the results of the biopsy. He states now just in the front part of his neck when he swallows or takes a deep breath. No chest pain. Little bit of pain when he looks up. Has
pain when he palpates that area. No fevers. No stridor. Eating and drinking normally. The patient did have a pericardial effusion when he was here last.
Past History
Past History
ED Past Medical History: Other (BPH, thyroid nodules, pericardial effusion)
Social History
Tobacco: Non-smoker
Alcohol: Occasional
Family History
Family History: Negative Diabetes or CAD
Phy Exam
Physical Exam
Physical Exam:
CONSTITUTIONAL Patient alert and oriented to person, place and time. Well-appearing. Vital signs reviewed.
HEAD atraumatic, normocephalic.
EYES eyelids normal to inspection, Pupils equally round and reactive to light, Extraocular muscles intact, Conjunctiva normal, Sclera normal.
NECK normal range of motion, Trachea midline, no jugular venous distention. Mild tenderness noted to the paratracheal area bilaterally but no masses found. No stridor. No induration or fluctuance. No hematoma. Able to flex and extend neck
normally. Able to rotate normally. No trismus
RESPIRATORY CHEST No respiratory distress noted, Chest expansion equal, Bilateral breath sounds clear.
CARDIOVASCULAR regular rate and rhythm, Heart sounds normal.
BACK normal inspection, no obvious deformities
UPPER EXTREMITY range of motion normal, Motor strength normal, no cyanosis, no edema.
LOWER EXTREMITY range of motion normal, Motor strength normal, no cyanosis, no edema.
NEURO Speech normal, No focal motor deficits, [place] coma scale 15, Memory normal, Cranial Nerves intact to screening exam.
SKIN skin warm, dry, and normal in color.
Scores
Heart Failure Risk
Heart Failure Risk Score: Not Applicable
Course
Orders/Labs/Results
Orders:
Orders
04/06/24 15:37
EKG [Electrocardiogram (*1)] Urgent
Reason for Study: Other
Other Reason for Exam: neck pain
04/06/24 15:38
EKG- Treatment ONCE
04/06/24 15:44
BMP [Basic Metabolic Panel] Urgent
CBC/With Diff [Complete Blood Count/With Diff] Urgent
Abnormal Lab Results
04/06/24
15:44
WBC 12.5 H 10^3/uL
(4.8-10.8)
RBC 4.39 L 10^6/uL
(4.70-6.10)
Abs Immat Gran (auto) 0.1 H 10^3/uL
(0-0.05)
Absolute Neuts (auto) 10.1 H 10^3/uL
(1.4-6.5)
Absolute Lymphs (auto) 1.1 L 10^3/uL
(1.2-3.4)
Absolute Monos (auto) 1.1 H 10^3/uL
(0.1-0.6)
Immature Gran % 0.6 H %
(0-0.5)
Neutrophils % 80.5 H %
(42.2-75.2)
Lymphocytes % 8.7 L %
(20.5-51.1)
Glucose 120 H mg/dl
(70-99)
04/06/24 15:44
04/06/24 15:44
Vital Signs
Initial and Last Documented VS:
Initial Vital Signs
Temp Pulse Resp BP Pulse Ox
98.3 F 93 18 113/77 95
04/06/24 15:32 04/06/24 15:32 04/06/24 15:32 04/06/24 15:32 04/06/24 15:32
Last Documented Vital Signs
Temp Pulse Resp BP Pulse Ox
98.3 F 88 18 121/78 96
04/06/24 15:32 04/06/24 21:01 04/06/24 21:01 04/06/24 21:01 04/06/24 21:01
MDM/Problems Addressed
MDM/Problems Addressed:
Neck pain
*Pulse Oximetry
Patient hypoxic: no
*EKG
Interpreted by ED Provider?: Yes
Interpretation: normal
Rate: normal
Rhythm: sinus
[place]: normal axis
QRS Pattern: normal QRS
Ischemia: no ischemia
*[place] Interpretation
Rate: normal
Interpretation: normal
Rhythm: sinus
*Critical Care Note
Total Time (30-74mins, 75-104mins- exclusive of procedures): Not Applicable
Data Reviewed
Source: patient
Further Testing Considered But Not Given:
Consider repeat CT but no concerning findings on exam. No stridor. No trismus. No palpable masses
ED Attending Note
-
Portions of this chart may have been created with voice recognition software.� Occasional wrong word or��sound alike� substitutions may have occurred due to the inherent limitations of voice recognition software.
Discharge Plan
Departure
Patient Disposition: Home (Routine Discharge)
Date of Disposition: 04/06/24
Time of Disposition: 20:22
Patient with high blood pressure during this ER visit?: No
Discharge Problem:
Neck pain
Instructions: Neck pain
Prescriptions:
New
hydrocodone-acetaminophen 5-325 mg tablet
1 tab PO Q6H PRN (Reason: Pain) Qty: 10 0RF
No Action
zinc 15 mg Tablet
30 mg PO DAILY
garlic 300 mg Capsule
300 mg PO DAILY
therapeutic multivitamin Tablet
1 tab PO DAILY
ascorbic acid (vitamin C) [Vitamin C] 500 mg Tablet
500 mg PO DAILY
magnesium oxide 500 mg magnesium Tablet
250 mg PO DAILY
glucosam-sod chondro-vit C-angela Tablet
2 tab PO DAILY
coQ10 (ubiquinol) 100 mg Capsule
100 mg PO DAILY
cyanocobalamin (vitamin B-12) 2,500 mcg Tablet
2,500 mcg PO DAILY
metoprolol tartrate 25 mg Tablet
12.5 mg PO BID Qty: 60 2RF
acetaminophen [Tylenol Extra Strength] 500 mg tablet
1,000 mg PO Q6H PRN (Reason: Pain) Qty: 90 0RF
ibuprofen 600 mg tablet
600 mg PO Q8H PRN (Reason: Pain) Qty: 14 0RF
Rx Instructions:
Use if tylenol doesn't help with pain.
USE SPARINGLY
Referrals:
León Mendosa MD [Family Provider] -
Activity Restrictions/Additional Instructions:
Please see your doctor in follow-up in the next 2 days. Return to ED for difficulty breathing, difficulty swallowing, weakness of any kind, voice changes or any other concerns.
Interventions
Interventions:
*Risk Screen - Suicide Last Done: 04/06/24 15:32
*General Assessment Last Done: 04/06/24 15:32
*Neglect/Abuse Screening Last Done: 04/06/24 15:32
*Nursing Disposition Last Done: 04/06/24 21:01
ED- Cardiac Assessment Last Done: 04/06/24 19:20
ED- Pulmonary Assessment Last Done: 04/06/24 19:20
Discharge Date and Time
Discharge Date/Time: 04/06/24 21:02
Print Language: FAROESE
[2024-04-06 21:01] VITALS: BP 121/78
== END 2024-04-06 21:02 | disposition home or self-care (01) ==
LOC: EMR 15:06
PROVIDERS: Physician Assistant; EMERGENCY PHYSICIAN Emergency Medicine; FAMILY PHYSICIAN Family Medicine
DX: M54.2 Cervicalgia (principal)
CPT/HCPCS: 99284; 80048; 85025; 93005

== ENCOUNTER 2024-04-26 06:01 | Emergency (ER) | payer OTHER, SELFPAY ==
[2024-04-26] VITALS (15 sets, daily range): BP systolic 95–126; BP diastolic 58–80; BMI 29.2
[2024-04-26 07:11] LABS: % Basophils 0.2 % (0-2); % Eosinophils 0.2 % (0-6); % Immature Granulocytes 0.6 % (0-0.5); % Lymphocytes 5.6 % (20.5-51.1); % Monocytes 7.2 % (1.7-9.3); % Neutrophils 86.2 % (42.2-75.2); Absolute Immature Granulocytes 0.1 10^3/uL (0-0.05); Absolute Lymphocytes 0.7 10^3/uL (1.2-3.4); Absolute Monocytes 0.9 10^3/uL (0.1-0.6); Absolute Neutrophils 11.2 10^3/uL (1.4-6.5); Hematocrit 40.2 % (39.0-52.0); Hemoglobin 13.6 g/dL (13.0-18.0); Mean Corp Hgb Conc. 33.8 g/dL (33.0-37.0); Mean Corpuscular Hgb 29.8 pg (27.0-31.0); Mean Corpuscular Volume 88.2 fL (80.0-94.0); Mean Platelet Volume 9.9 fL (7.4-10.4); Nucleated Red Blood Cells % 0 % (-); Platelet Count 388 10^3/uL (130-400); Red Blood Cell Count 4.56 10^6/uL (4.70-6.10); Red Cell Dist. Width 12.5 % (11.5-14.5)
--- NOTE | 2024-04-26 07:14 | ED.GENMED ---
History of Present Illness
General
Chief Complaint: Breathing Problem
Source: patient and records
Exam Limitations: none
Time Seen by Provider: 04/26/24 06:31
Nursing documentation reviewed up to this point in time: agreed with
History of Present Illness
History of Present Illness:
79-year-old male with history as documented presents for evaluation of shortness of breath. Patient reports this is been ongoing for the past few months; notably was recently admitted in late March for chest pain associated shortness of breath
found to have pericardial effusion requiring pericardiocentesis; approximate 5 cc drained. Has been seen by [facility] cardiology. He says that over the past few days symptoms have been getting worse. He describes consistent shortness of breath much
worse with even light exertion. He says shortness of breath is worse with lying flat at night. He says that last night he was having palpitations and tachycardia on his home monitor that continued into this morning. he denies any chest pain. He
denies any cough, fevers, chills. Denies any swelling in the legs. No nausea, vomiting, abdominal pain.
Past History
Past History
ED Past Medical History: Other (BPH, thyroid nodules, pericardial effusion)
Social History
Tobacco: Non-smoker
Alcohol: Occasional
Family History
Family History: Negative Diabetes or CAD
Review of Systems
Review of Systems
All Other Systems: ROS reviewed and negative except as documented in HPI and ROS
Constitutional: Reports fatigue; Denies fever or chills
EENT: Denies sore throat or runny nose
Respiratory: Reports trouble breathing; Denies cough
Cardiac: Reports palpitations; Denies chest pain
ABD/GI: Denies abdominal pain, nausea or vomiting
: Denies flank pain
Musculoskeletal: Denies neck pain or back pain
Neurological: Denies dizzy or headache
Phy Exam
Physical Exam
Physical Exam:
General: Awake, alert, oriented x3; no acute distress
Head: Normocephalic, atraumatic
Eyes: Conjunctiva normal, pupils equal round reactive to light bilaterally
Throat: Airway intact, handling secretions
Neck: Trachea midline, supple without meningismus
Lungs: Clear to auscultation bilaterally, no wheezing, rales, rhonchi
Heart: Tachycardia with regular rhythm, no murmurs, gallops, or rubs
Abd: Soft, non distended, nontender
Neuro: No gross deficits
Extremities: No edema in extremities, equal pulses in all extremities
Scores
Heart Failure Risk
Heart Failure Risk Score: Not Applicable
Heart Score for Chest Pain Patients
STEMI patient?: Not applicable
Withdrawal Assessment of Alcohol
Withdrawal Assessment Completed?: Not applicable
Course
Orders/Labs/Results
Orders:
Orders
04/26/24 06:09
ECG [Electrocardiogram (*1)] Urgent
Reason for Study: Shortness of Breath
EKG- Treatment ONCE
04/26/24 06:35
CR Chest Portable - 1 View Urgent
Comment:
Reason For Exam: SOB
Reason Study Needs to be Portable: Unable to Transport
04/26/24 07:02
COVID-19 Antigen Urgent
Source: Nasal Swab
Complete Blood Count/With Diff Urgent
Comprehensive Metabolic Panel Urgent
NT-proBNP Urgent
PTT Urgent
Prothrombin Time Urgent
Troponin I Urgent
04/26/24 07:20
CT Chest Pe Study Urgent
Comment:
Reason For Exam: sob, hypoxia, tachycardia, recent hospitalization
Abnormal Lab Results
04/26/24
07:02
WBC 13.0 H 10^3/uL
(4.8-10.8)
RBC 4.56 L 10^6/uL
(4.70-6.10)
Abs Immat Gran (auto) 0.1 H 10^3/uL
(0-0.05)
Absolute Neuts (auto) 11.2 H 10^3/uL
(1.4-6.5)
Absolute Lymphs (auto) 0.7 L 10^3/uL
(1.2-3.4)
Absolute Monos (auto) 0.9 H 10^3/uL
(0.1-0.6)
Immature Gran % 0.6 H %
(0-0.5)
Neutrophils % 86.2 H %
(42.2-75.2)
Lymphocytes % 5.6 L %
(20.5-51.1)
04/26/24 07:02
Vital Signs
Initial and Last Documented VS:
Initial Vital Signs
Temp Pulse Resp BP Pulse Ox
36.3 C 114 26 126/80 97
04/26/24 06:03 04/26/24 06:03 04/26/24 06:03 04/26/24 06:03 04/26/24 06:03
Last Documented Vital Signs
Temp Pulse Resp BP Pulse Ox
36.3 C 109 36 101/68 92
04/26/24 06:03 04/26/24 07:06 04/26/24 07:06 04/26/24 07:06 04/26/24 07:06
MDM/Problems Addressed
Differential Diagnosis Includes:
CHF, pericardial effusion, pneumonia, pneumothorax, PE, ACS less likely without chest pain
MDM/Problems Addressed:
79-year-old male presents to the emergency room for evaluation of shortness of breath; has recent admission in March for pericardial effusion, presented with chest pain and shortness of breath at that time. He says shortness of breath feels
similar although he is not having chest pain today. Also reports palpitations. He arrives to us tachycardic, mild tachypnea. Pulse ox acceptable on room air. Physical exam as above�at least by exam does not appear to be in CHF. EKG shows sinus
tachycardia. Will place an IV check labs including a CBC and a CMP, troponin, BNP. Swab for COVID. Check coags. Stat chest x-ray reviewed by me appears to show a right pleural effusion no pneumonia or pneumothorax. Will send for a CTA to rule
out PE and to evaluate for effusion. Monitor closely reassess after the above.
Chronic conditions affecting care:
CHF
*Radiology
Radiology exam reviewed: preliminary read by ED provider and radiology read reviewed
*Pulse Oximetry
Patient hypoxic: no
*EKG
Interpreted by ED Provider?: Yes
Heart Rate: 119
Rate: tachycardiac
Rhythm: sinus and sinus tachycardia
[place]: normal axis
Interval: normal interval
QRS Pattern: normal QRS
Ischemia: other (Inferior infarct age undetermined)
*Critical Care Note
Total Time (30-74mins, 75-104mins- exclusive of procedures): Not Applicable
Data Reviewed
Review of Other/Old Records Reveals: Labs, Records and Discharge Summary
Source: patient and records
Patient Management
Discussion with other providers: Hospitalist (Discussed with hospitalist) and Cash Applications Representative (Discussed with cardiology)
Escalation/DeEscalation of care consider admission/obs:
Admission indicated
ED Attending Note
-
Portions of this chart may have been created with voice recognition software.� Occasional wrong word or��sound alike� substitutions may have occurred due to the inherent limitations of voice recognition software.
Discharge Plan
Departure
Prescriptions:
No Action
zinc 15 mg Tablet
30 mg PO DAILY
garlic 300 mg Capsule
300 mg PO DAILY
therapeutic multivitamin Tablet
1 tab PO DAILY
ascorbic acid (vitamin C) [Vitamin C] 500 mg Tablet
500 mg PO DAILY
magnesium oxide 500 mg magnesium Tablet
250 mg PO DAILY
glucosam-sod chondro-vit C-angela Tablet
2 tab PO DAILY
coQ10 (ubiquinol) 100 mg Capsule
100 mg PO DAILY
cyanocobalamin (vitamin B-12) 2,500 mcg Tablet
2,500 mcg PO DAILY
metoprolol tartrate 25 mg Tablet
12.5 mg PO BID Qty: 60 2RF
acetaminophen [Tylenol Extra Strength] 500 mg tablet
1,000 mg PO Q6H PRN (Reason: Pain) Qty: 90 0RF
ibuprofen 600 mg tablet
600 mg PO Q8H PRN (Reason: Pain) Qty: 14 0RF
Rx Instructions:
Use if tylenol doesn't help with pain.
USE SPARINGLY
hydrocodone-acetaminophen 5-325 mg tablet
1 tab PO Q6H PRN (Reason: Pain) Qty: 10 0RF
Referrals:
León Mendosa MD [Family Provider] -
Interventions
Interventions:
*Risk Screen - Suicide Last Done: 04/26/24 06:03
*General Assessment Last Done: 04/26/24 06:46
*Neglect/Abuse Screening Last Done: 04/26/24 06:03
ED- Fall Risk Assessment Last Done: 04/26/24 06:46
*ED COVID-19 Vaccine History Last Done: 04/26/24 06:46
ED- Cardiac Assessment Last Done: 04/26/24 06:46
ED- Pulmonary Assessment Last Done: 04/26/24 06:46
Discharge Date and Time
Print Language: SYRI[place]
[2024-04-26 07:23] LABS: ALT (SGPT) 35 U/L (0-50); AST (SGOT) 32 U/L (17-59); Albumin 3.4 g/dl (3.5-5.0); Alkaline Phosphatase 85 U/L (38-126); Blood Urea Nitrogen 15 mg/dl (9-20); Carbon Dioxide 25 mmol/L (22-30); Chloride 99 mmol/L (98-107); Estimated Creatinine Clearance 94 ml/min; Glucose 146 mg/dl (70-99); Potassium 4.2 mmol/L (3.5-5.1); Sodium 137 mmol/L (135-145); eGFR > 60.00
[2024-04-26 07:27] LABS: COVID-19 Antigen Negative (Negative)
[2024-04-26 07:29] LABS: APTT 40.3 Sec (23.4-35.0); INR 1.29; PT 15.9 Sec (11.4-14.6)
[2024-04-26 07:35] LABS: NT-proBNP 1210 pg/ml; Troponin I < 0.012 ng/ml
[2024-04-26] MEDS: LASIX 40 MG IV (13:48)
== END 2024-04-26 13:58 | disposition home or self-care (01) ==
LOC: EMR 06:01
PROVIDERS: CONSULT PHYSICIAN Internal Medicine; EMERGENCY PHYSICIAN Emergency Medicine; FAMILY PHYSICIAN Family Medicine
DX: J90 Pleural effusion, not elsewhere classified (principal); I50.9 Heart failure, unspecified
CPT/HCPCS: 99285; 96374; 93308; 71045; 71275; 80053; 83880; 84484; 85025; 85610; 85730; 87811; 93005; 93321; 93325; Q9967

== ENCOUNTER → 2024-05-12 08:20 | Outpatient (REF) | payer OTHER, SELFPAY | LOC: RCS 08:20 | PROVIDERS: ATTENDING PHYSICIAN Internal Medicine Cardiovascular Disease; FAMILY PHYSICIAN Family Medicine | DX: I31.39 Other pericardial effusion (noninflammatory) (principal) | CPT/HCPCS: 93308; 93321; 93325 ==

== ENCOUNTER → 2024-05-28 07:52 | Outpatient (REF) | payer OTHER, SELFPAY | LOC: RAD 07:52 | PROVIDERS: ATTENDING PHYSICIAN Family Medicine | DX: I50.9 Heart failure, unspecified (principal) | CPT/HCPCS: 71046 ==

== ENCOUNTER → 2024-07-11 12:20 | Outpatient (REF) | payer OTHER, SELFPAY | LOC: RCS 12:20 | PROVIDERS: ATTENDING PHYSICIAN Internal Medicine Cardiovascular Disease; FAMILY PHYSICIAN Family Medicine | DX: I31.39 Other pericardial effusion (noninflammatory) (principal) | CPT/HCPCS: 93308; 93321; 93325 ==